=== PATIENT | male | born 1975 | race Caucasian/White ===

== ENCOUNTER 2023-05-12 11:38 | Outpatient (OUT) | payer OTHER, SELFPAY ==
[2023-05-12 12:14] LABS: Basophils Absolute Auto 0.1 10^3/uL (0.0-0.1); Basophils Percent Auto 0.7 % (0.2-2.0); Eosinophils Absolute Auto 0.2 10^3/uL (0.0-0.7); Eosinophils Percent Auto 1.8 % (0.9-7.0); Hematocrit 42.3 % (42.0-54.0); Hemoglobin 14.5 g/dL (14.0-18.0); Immature Granulocytes Abs Auto 0.04 10^3/uL (0.00-0.03); Immature Granulocytes Pct Auto 0.4 % (0.0-0.5); Lymphocytes Absolute Auto 2.8 10^3/uL (1.2-3.8); Lymphocytes Percent Auto 27.5 % (20.5-60.0); Mean Corpuscular HGB Conc 34.3 g/dL (29.9-35.2); Mean Corpuscular Hemoglobin 29.2 pg (25.9-34.0); Mean Corpuscular Volume 85.1 fL (80.0-94.0); Mean Platelet Volume 10.8 fL (9.5-13.5); Monocytes Absolute Auto 0.7 10^3/uL (0.3-0.8); Monocytes Percent Auto 6.5 % (1.7-12.0); Neutrophils Absolute Auto 6.5 10^3/uL (1.4-6.5); Neutrophils Percent Auto 63.1 % (43.0-75.0); Platelet Count 207 10^3/uL (150-450); Red Blood Count 4.97 10^6/uL (4.70-6.10); Red Cell Distribution Width 14.7 % (11.0-15.0); White Blood Count 10.3 10^3/uL (4.0-11.0)
[2023-05-12 15:02] LABS: Alanine Aminotransferase 24 U/L (16-63); Alkaline Phosphatase 76 U/L (46-116); Anion Gap 12.6; Aspartate Amino Transferase 12 U/L (15-37); Bilirubin Total 0.6 mg/dL (0.2-1.0); Calcium 8.8 mg/dL (8.5-10.1); Carbon Dioxide 28.6 mmol/L (21.0-32.0); Chloride 103 mmol/L (98-107); Estimated GFR (African America >60 (>=60); Estimated GFR (Non-African Ame >60 (>=60); Globulin 3.9 g/dL; Glucose 112 mg/dL (74-106); Potassium 4.2 mmol/L (3.5-5.1); Sodium 140 mmol/L (136-145); Total Protein 7.9 g/dL (6.4-8.2); Triglycerides 49 mg/dL (<=150)
[2023-05-12 15:03] LABS: Chol HDL Ratio 3.5; Cholesterol 175 mg/dL (<=200); HDL Cholesterol 50 mg/dL (40-60); LDL Cholesterol Calculated 115.2 mg/dL; VLDL CHOLESTEROL 9.8 mg/dL
== END 2023-05-12 11:39 | disposition home or self-care (01) ==
PROVIDERS: PCP Nurse Practitioner Family; Visit Provider Nurse Practitioner Family
DX: I10 Essential (primary) hypertension (principal); E11.9 Type 2 diabetes mellitus without complications
CPT/HCPCS: 36415; 80053; 80061; 85025

== ENCOUNTER 2023-12-10 08:39 | Outpatient (OUT) | payer OTHER, SELFPAY ==
[2023-12-10 10:45] LABS: Alanine Aminotransferase 19 U/L (16-63); Albumin Globulin Ratio 0.9; Albumin Level 3.6 g/dL (3.4-5.0); Alkaline Phosphatase 73 U/L (46-116); Anion Gap 15.3; Aspartate Amino Transferase 12 U/L (15-37); Bilirubin Total 0.6 mg/dL (0.2-1.0); Calcium 8.9 mg/dL (8.5-10.1); Carbon Dioxide 26.7 mmol/L (21.0-32.0); Chloride 107 mmol/L (98-107); Chol HDL Ratio 3.1; Cholesterol 179 mg/dL (<=200); Estimated GFR (African America >60 (>=60); Estimated GFR (Non-African Ame >60 (>=60); Glucose 97 mg/dL (74-106); HDL Cholesterol 58 mg/dL (40-60); Sodium 145 mmol/L (136-145); Total Protein 7.6 g/dL (6.4-8.2); Triglycerides 30 mg/dL (<=150)
== END 2023-12-10 08:40 | disposition home or self-care (01) ==
LOC: LAB 08:40
PROVIDERS: PCP Nurse Practitioner Family; Visit Provider Nurse Practitioner Family
DX: I10 Essential (primary) hypertension (principal)
CPT/HCPCS: 36415; 80053; 80061

== ENCOUNTER 2024-06-08 11:04 | Outpatient (OUT) | payer OTHER, SELFPAY ==
--- OUTSIDE RECORDS SUMMARY | 2024-06-07 11:03 | XMS_ITS | CCD ---
Author Organization [facility] Care Team Providers Care Travel Service Consultant Name Role Phone Stacy Byers Unavailable STACY BYERS Attending Unavailable STACY BYERS Admitting Unavailable STACY BYERS Consulting Unavailable STACY BYERS Admitting Unavailable STACY BYERS Primary Care Unavailable STACY BYERS Consulting Unavailable STACY BYERS Attending Unavailable Medications Current Medications Medication Drug Class(es) Dates Sig (Normalized) Sig (Original) lisinopril 20 mg oral tablet (4 sources) Angiotensin Converting Enzyme Inhibitor Start: 08-25-2022 take 1 tablet by mouth every twenty-four hours Lisinopril 20 MG 1 tablet Orally Once a day for 30 days Aug, Active Start: 08-25-2022 take 1 tablet by jolene th every twenty-four hours Lisinopril 10 MG 1 tablet Orally Once a day for 30 days Aug, Active Problems Problem Classification Problem Date Documented Da te Episodic/Chronic Diabetes mellitus without complication (7 sources) Type 2 diabetes mellitus without complication; Translations: [Type 2 diabetes mellitus without complications] Chronic Essential hypertension (12 sources) Essential hypertension; Translations: [Essential (primary) hypertension] Onset: 12-11-2022 Chronic Other aftercare (1 source) Encounter for follow-up examination after completed treatment for conditions other than malignant neoplasm Episodic Other circulatory disease (1 source) Elevated blood-pressure reading, without diagnosis of hypertension Episodic Results Test Name Value Interpretation Reference Range Facility GLYCOHEMOGLOBIN A1Con 2022 ADA RECOMMENDATION SEE BELOW Normal [facility] Comment on above: Result Comment: ADA RECOMMENDED LIMIT 4.0 - 6.0 ADA THERAPEUTIC TARGET < 7.0 ACTION SUGGESTED > 7.0 Performed By: #### A 1C #### [facility] [address] [address] [address] Cherie Daniel Glucose [Mass/Vol] 97 mg/dL Normal [facility] Comment on above: Performed By: #### A 1C #### [facility] [address] [address] [address] Cherie Daniel HbA1c (Bld) [Mass fraction] 5.0 % Normal 4.5-6.2 [facility] Comment on above: Performed By: #### A 1C #### [facility] [address] [address] [address] Cherie Daniel MICROALB CREAT RATIO RANDOMo n 12-11-2022 mALB 3.9 mg/L Normal <=30.0 [facility] Comment on above: Performed By: #### M CRR #### [facility] [address] [place] [address] Dr. Cherie Daniel MALB CR RATIO 28.5 mg/g Normal 0.0-29.9 [facility] Comment on above: Performed By: #### M CRR #### [facility] [address] [address] [address] Cherie Daniel MALB CR RATIO RANGE SEE BELOW Normal [facility] Comment on above: Result Comment: NO M ICROALBUMINURIA 0-29 MG/G CLINICAL MICROALBUMINURIA 30-300 MG/G MACROALBUMINURIA >300 MG/G Performed By: #### M CRR #### [facility] [address] [place] [address] Dr. Cherie Daniel URINE CREAT 136.80 mg/dL Normal 20.00-300.00 [facility] Comment on above: Performed By: #### M CRR #### [facility] [address] [place] [address] Dr. Cherie Daniel PROF 14(COMP METB)on 023 Albumin [Mass/Vol] 4.0 g/dL Normal 3.4-5.0 [facility] Comment on above: Performed By: #### C MP #### [facility] [address] [place] [address] Dr. Cherie Daniel Albumin/Globulin [Mass ratio] 1.0 {ratio} Normal [facility] Comment on above: Performed By: #### C MP #### [facility] [address] [address] [address] Cherie Daniel ALP [Catalytic activity/Vol] 94 U/L Normal 46-116 [facility] Comment on above: Performed By: #### C MP #### [facility] [address] [address] [address] Cherie Daniel ALT [Catalytic activity/Vol] 31 U/L Normal 16-63 [facility] Comment on above: Performed By: #### C MP #### [facility] [address] [address] [address] Cherie Daniel Anion gap [Moles/Vol] 10.9 mmol/L Normal [facility] Comment on above: Performed By: #### C MP #### [facility] [address] [place] [address] Dr. Cherie Daniel AST [Catalytic activity/Vol] 19 U/L Normal 15-37 [facility] Comment on above: Performed By: #### C MP #### [facility] [address] [place] [address] Dr. Cherie Daniel Bilirubin [Mass/Vol] 0.6 mg/dL Normal 0.2-1.0 [facility] Comment on above: Performed By: #### C MP #### [facility] [address] [place] [address] Dr. Cherie Daniel Calcium [Mass/Vol] 9.3 mg/dL Normal 8.5-10.1 [facility] Comment on above: Performed By: #### C MP #### [facility] [address] [place] [address] Dr. Cherie Daniel Chloride [Moles/Vol] 104 mmol/L Normal 98-107 [facility] Comment on above: Performed By: #### C MP #### [facility] [address] [place] [address] Dr. Cherie Daniel CO2 [Moles/Vol] 27.0 mmol/L Normal 21.0-32.0 [facility] Comment on above: Performed By: #### C MP #### [facility] [address] [address] [address] Cherie Daniel Creatinine [Mass/Vol] 0.95 mg/dL Normal 0.70-1.30 [facility] Comment on above: Performed By: #### C MP #### [facility] [address] [place] [address] Dr. Cherie Daniel EGFR-AF LUXEMBOURGER >60 Normal >=60 [facility] Comment on above: Performed By: #### C MP #### [facility] [address] [address] [address] Cherie Daniel EGFR-NON AF LUXEMBOURGER >60 Normal >=60 [facility] Comment on above: Performed By: #### C MP #### [facility] [address] [place] [address] Dr. Cherie Daniel Globulin (S) [Mass/Vol] 4.0 g/dL Normal [facility] Comment on above: Performed By: #### C MP #### [facility] [address] [place] [address] Dr. Cherie Daniel Glucose [Mass/Vol] 103 mg/dL Normal 74-106 [facility] Comment on above: Performed By: #### C MP #### [facility] [address] [place] [address] Dr. Cherie Daniel Potassium [Moles/Vol] 3.9 mmol/L Normal 3.5-5.1 [facility] Comment on above: Performed By: #### C MP #### [facility] [address] [place] [address] Dr. Cherie Daniel Protein [Mass/Vol] 8.0 g/dL Normal 6.4-8.2 [facility] Comment on above: Performed By: #### C MP #### [facility] [address] [place] [address] Dr. Cherie Daniel Sodium [Moles/Vol] 138 mmol/L Normal 136-145 [facility] Comment on above: Performed By: #### C MP #### [facility] [address] [place] [address] Dr. Cherie Daniel Urea nitrogen [Mass/Vol] 13.0 mg/dL Normal 7.0-18.0 [facility] Comment on above: Performed By: #### C MP #### [facility] [address] [place] [address] Dr. Cherie Daniel Urea nitrogen/Creatinine [Mass ratio] 13.7 mg/mg Normal [facility] Comment on above: Performed By: #### C MP #### [facility] [address] [place] [address] Dr. Cherie Daniel CBC AUTO DIFFon 08-05-2022 BASO # 0.1 103/ul Normal 0.0-0.1 [facility] Comment on above: Performed By: #### C BC #### [facility] [address] [place] [address] Dr. Cherie Daniel Basophils/100 WBC (Bld) 0.6 % Normal 0.2-2.0 [facility] Comment on above: Performed By: #### C BC #### [facility] [address] [place] [address] Dr. Cherie Daniel EO # 0.4 103/ul Normal 0.0-0.7 [facility] Comment on above: Performed By: #### C BC #### [facility] [address] [place] [address] Dr. Cherie Daniel Eosinophils/100 WBC (Bld) 2.9 % Normal 0.9-7.0 [facility] Comment on above: Performed By: #### C BC #### [facility] [address] [place] [address] Dr. Cherie Daniel Erythrocyte distribution width (RBC) [Ratio] 14.1 % Normal 11.0-15.0 [facility] Comment on above: Performed By: #### C BC #### [facility] [address] [place] [address] Dr. Cherie Daniel Hematocrit (Bld) [Volume fraction] 42.8 % Normal 42.0-54.0 [facility] Comment on above: Performed By: #### C BC #### [facility] [address] [place] [address] Dr. Cherie Daniel Hemoglobin (Bld) [Mass/Vol] 14.7 g/dL Normal 14.0-18.0 [facility] Comment on above: Performed By: #### C BC #### [facility] [address] [place] [address] Dr. Cherie Daniel IG # 0.05 10e3/ul Critically high 0.00-0.03 [facility] Comment on above: Performed By: #### C BC #### [facility] [address] [place] [address] Dr. Cherie Daniel IG % 0.4 % Normal 0.0-0.5 [facility] Comment on above: Performed By: #### C BC #### [facility] [address] [place] [address] Dr. Cherie Daniel LYMPH # 3.4 103/ul Normal 1.2-3.8 [facility] Comment on above: Performed By: #### C BC #### [facility] [address] [place] [address] Dr. Cherie Daniel Lymphocytes/100 WBC (Bld) 25.6 % Normal 20.5-60.0 [facility] Comment on above: Performed By: #### C BC #### [facility] [address] [place] [address] Dr. Cherie Daniel MANUAL DIFF REQ NO Normal [facility] Comment on above: Performed By: #### C BC #### [facility] [address] [place] [address] Dr. Cherie Daniel MCH (RBC) [Entitic mass] 29.1 pg Normal 25.9-34.0 [facility] Comment on above: Performed By: #### C BC #### [facility] [address] [place] [address] Dr. Cherie Daniel MCHC (RBC) [Mass/Vol] 34.3 g/dL Normal 29.9-35.2 [facility] Comment on above: Performed By: #### C BC #### [facility] [address] [place] [address] Dr. Cherie Daniel MCV (RBC) [Entitic vol] 84.8 fL Normal 80.0-94.0 [facility] Comment on above: Performed By: #### C BC #### [facility] [address] [address] [address] Cherie Daniel MONO # 0.8 103/ul Normal 0.3-0.8 [facility] Comment on above: Performed By: #### C BC #### [facility] [address] [address] [address] Cherie Daniel Monocytes/100 WBC (Bld) 5.7 % Normal 1.7-12.0 [facility] Comment on above: Performed By: #### C BC #### [facility] [address] [address] [address] Cherie Daniel NEUT # 8.5 103/ul Critically high 1.4-6.5 [facility] Comment on above: Performed By: #### C BC #### [facility] [address] [place] [address] Dr. Cherie Daniel Neutrophils/100 WBC (Bld) 64.8 % Normal 43.0-75.0 [facility] Comment on above: Performed By: #### C BC #### [facility] [address] [address] [address] Cherie Daniel Platelet mean volume (Bld) [Entitic vol] 10.4 fL Normal 9.5-13.5 [facility] Comment on above: Performed By: #### C BC #### [facility] [address] [place] [address] Dr. Cherie Daniel PLT 246 103/ul Normal 150-450 [facility] Comment on above: Performed By: #### C BC #### [facility] [address] [place] [address] Dr. Cherie Daniel RBC 5.05 106/ul Normal 4.70-6.10 [facility] Comment on above: Performed By: #### C BC #### [facility] [address] [address] [address] Cherie Daniel WBC 13.1 103/ul Critically high 4.0-11.0 [facility] Comment on above: Performed By: #### C BC #### [facility] [address] [address] [address] Cherie Daniel GLYCOHEMOGLOBIN A1Con 2021 ADA RECOMMENDATION SEE BELOW Normal [facility] Comment on above: Result Comment: ADA RECOMMENDED LIMIT 4.0 - 6.0 ADA THERAPEUTIC TARGET < 7.0 ACTION SUGGESTED > 7.0 Performed By: #### A 1C #### [facility] [address] [address] [address] Cherie Daniel Glucose [Mass/Vol] 166 mg/dL Normal [facility] Comment on above: Performed By: #### A 1C #### [facility] [address] [place] [address] Dr. Cherie Daniel HbA1c (Bld) [Mass fraction] 7.4 % Critically high 4.5-6.2 [facility] Comment on above: Performed By: #### A 1C #### [facility] [address] [place] [address] Dr. Cherie Daniel LIPID PROFILEon 08-05-2022 CHOL-HDL RATIO NORM SEE BELOW Normal [facility] Comment on above: Result Comment: 3.3 - 4.4 LOW RISK 4.4 - 7.1 AVERAGE RISK 7.1 - 11.0 MODERATE RISK >11.0 HIGH RISK Performed By: #### L IPID, CMP #### [facility] [address] [place] [address] Dr. Cherie Daniel Cholesterol [Mass/Vol] 179 mg/dL Normal <=200 [facility] Comment on above: Performed By: #### L IPID, CMP #### [facility] [address] [place] [address] Dr. Cherie Daniel Cholesterol in HDL [Mass/Vol] 45 mg/dL Normal 40-60 [facility] Comment on above: Performed By: #### L IPID, CMP #### [facility] [address] [place] [address] Dr. Cherie Daniel Cholesterol in LDL [Mass/Vol] 118.2 mg/dL Normal [facility] Comment on above: Performed By: #### L IPID, CMP #### [facility] [address] [address] [address] Cherie Daniel Cholesterol.total/Cho lesterol in HDL [Mass ratio] 4.0 {ratio} Normal [facility] Comment on above: Performed By: #### L IPID, CMP #### [facility] [address] [place] [address] Dr. Cherie Daniel HDL NORMAL > or = 60 mg/dl - LO W CARDIOVASCULAR RISK <40 mg/dl - HIGH CARDIOVASCULAR RISK Normal [facility] Comment on above: Performed By: #### L IPID, CMP #### [facility] [address] [address] [address] Cherie Daniel LDL CALC NORMAL SEE BELOW Normal [facility] Comment on above: Result Comment: <100 mg/dl OPTIMAL 100 - 129 mg/dl NEAR OR ABOVE OPTIMAL 130 - 159 mg/dl BORDERLINE HIGH 160 - 189 mg/dl HIGH >190 mg/dl VERY HIGH Performed By: #### L IPID, CMP #### [facility] [address] [place] [address] Dr. Cherie Daniel Triglyceride [Mass/Vol] 79 mg/dL Normal <=150 [facility] Comment on above: Performed By: #### L IPID, CMP #### [facility] [address] [place] [address] Dr. Cherie Daniel VLDL CALC 15.8 mg/dL Normal [facility] Comment on above: Performed By: #### L IPID, CMP #### [facility] [address] [place] [address] Dr. Cherie Daniel PROF 14(COMP METB)on 022 Albumin [Mass/Vol] 3.7 g/dL Normal 3.4-5.0 [facility] Comment on above: Performed By: #### L IPID, CMP #### [facility] [address] [place] [address] Dr. Cherie Daniel Albumin/Globulin [Mass ratio] 0.9 {ratio} Normal [facility] Comment on above: Performed By: #### L IPID, CMP #### [facility] [address] [place] [address] Dr. Cherie Daniel ALP [Catalytic activity/Vol] 99 U/L Normal 46-116 [facility] Comment on above: Performed By: #### L IPID, CMP #### [facility] [address] [address] [address] Cherie Daniel ALT [Catalytic activity/Vol] 33 U/L Normal 16-63 [facility] Comment on above: Performed By: #### L IPID, CMP #### [facility] [address] [address] [address] Cherie Daniel Anion gap [Moles/Vol] 11.2 mmol/L Normal [facility] Comment on above: Performed By: #### L IPID, CMP #### [facility] [address] [place] [address] Dr. Cherie Daniel AST [Catalytic activity/Vol] 19 U/L Normal 15-37 [facility] Comment on above: Performed By: #### L IPID, CMP #### [facility] [address] [address] [address] Cherie Daniel Bilirubin [Mass/Vol] 0.5 mg/dL Normal 0.2-1.0 [facility] Comment on above: Performed By: #### L IPID, CMP #### [facility] [address] [place] [address] Dr. Cherie Daniel Calcium [Mass/Vol] 8.8 mg/dL Normal 8.5-10.1 [facility] Comment on above: Performed By: #### L IPID, CMP #### [facility] [address] [address] [address] Cherie Daniel Chloride [Moles/Vol] 101 mmol/L Normal 98-107 [facility] Comment on above: Performed By: #### L IPID, CMP #### [facility] [address] [place] [address] Dr. Cherie Daniel CO2 [Moles/Vol] 29.8 mmol/L Normal 21.0-32.0 [facility] Comment on above: Performed By: #### L IPID, CMP #### [facility] [address] [place] [address] Dr. Cherie Daniel Creatinine [Mass/Vol] 0.91 mg/dL Normal 0.70-1.30 [facility] Comment on above: Performed By: #### L IPID, CMP #### [facility] [address] [place] [address] Dr. Cherie Daniel EGFR-AF LUXEMBOURGER >60 Normal >=60 [facility] Comment on above: Performed By: #### L IPID, CMP #### [facility] [address] [address] [address] Cherie Daniel EGFR-NON AF LUXEMBOURGER >60 Normal >=60 [facility] Comment on above: Performed By: #### L IPID, CMP #### [facility] [address] [place] [address] Dr. Cherie Daniel Globulin (S) [Mass/Vol] 4.0 g/dL Normal [facility] Comment on above: Performed By: #### L IPID, CMP #### [facility] [address] [place] [address] Dr. Cherie Daniel Glucose [Mass/Vol] 163 mg/dL Critically high 74-106 [facility] Comment on above: Performed By: #### L IPID, CMP #### [facility] [address] [place] [address] Dr. Cherie Daniel Potassium [Moles/Vol] 4.0 mmol/L Normal 3.5-5.1 [facility] Comment on above: Performed By: #### L IPID, CMP #### [facility] [address] [place] [address] Dr. Cherie Daniel Protein [Mass/Vol] 7.7 g/dL Normal 6.4-8.2 [facility] Comment on above: Performed By: #### L IPID, CMP #### [facility] [address] [place] [address] Dr. Cherie Daniel Sodium [Moles/Vol] 138 mmol/L Normal 136-145 [facility] Comment on above: Performed By: #### L IPID, CMP #### [facility] [address] [place] [address] Dr. Cherie Daniel Urea nitrogen [Mass/Vol] 10.0 mg/dL Normal 7.0-18.0 [facility] Comment on above: Performed By: #### L IPID, CMP #### [facility] [address] [address] [address] Cherie Daniel Urea nitrogen/Creatinine [Mass ratio] 11.0 mg/mg Normal [facility] Comment on above: Performed By: #### L IPID, CMP #### [facility] [address] [address] [address] Cherie Daniel VITAMIN D 25 OHon 08-05-2022 VIT D 25-OH 10.9 ng/mL Normal [facility] Comment on above: Performed By: #### V ITAD #### [facility] [address] [place] [address] Dr. Cherie Daniel VIT D RANGES SEE BELOW Normal [facility] Comment on above: Result Comment: <20 ng/mL Vit D deficient 20 - <30 ng/mL Vit D insufficient 30 - 100 ng/mL Vit D sufficient >100 ng/mL Potential Toxicity Performed By: #### V ITAD #### [facility] [address] [address] [address] Cherie Daniel Vital Signs Date Time Vital Sign Value Performing Clinician Facility 12-16-2022 10:00-0500 Body height 182.88 cm Stacy Byers Other [facility] Other 12-16-2022 10:00-0500 Body mass index (BMI) [Ratio] 39.6 kg/m2 Stacy Byers Other [facility] Other 12-16-2022 10:00-0500 Body temperature 98.1 [degF] Stacy Byers Other [facility] Other 12-16-2022 10:00-0500 Body weight 132.45 kg Stacy Byers Other [facility] Other 12-16-2022 10:00-0500 Diastolic blood pressure 85 mm[Hg] Stacy Byers Other [facility] Other 12-16-2022 10:00-0500 Respiratory rate 18 /min Stacy Byers Other [facility] Other 12-16-2022 10:00-0500 SaO2% (BldA) [Mass fraction] 97 % Stacy Byers Other [facility] Other 12-16-2022 10:00-0500 Systolic blood pressure 133 mm[Hg] Stacy Byers Other [facility] Other 10-14-2022 11:00-0500 Body height 182.88 cm Stacy Byers Other [facility] Other 10-14-2022 11:00-0500 Body mass index (BMI) [Ratio] 41.63 kg/m2 Stacy Byers Other [facility] Other 10-14-2022 11:00-0500 Body temperature 97.4 [degF] Stacy Byers Other [facility] Other 10-14-2022 11:00-0500 Body weight 139.26 kg Stacy Byers Other [facility] Other 10-14-2022 11:00-0500 Diastolic blood pressure 83 mm[Hg] Stacy Rodault Other [facility] Other 10-14-2022 11:00-0500 Respiratory rate 18 /min Stacy Rodault Other [facility] Other 10-14-2022 11:00-0500 SaO2% (BldA) [Mass fraction] 96 % Stacy Byers Other [facility] Other 10-14-2022 11:00-0500 Systolic blood pressure 140 mm[Hg] Stacy Byers Other [facility] Other 08-25-2022 11:00-0500 Body height 182.88 cm Stacy Byers Other [facility] Other 08-25-2022 11:00-0500 Body mass index (BMI) [Ratio] 44.21 kg/m2 Stacy Byers Other [facility] Other 08-25-2022 11:00-0500 Body temperature 97.3 [degF] Stacy Byers Other [facility] Other 08-25-2022 11:00-0500 Body weight 147.87 kg Stacy Byers Other [facility] Other 08-25-2022 11:00-0500 Diastolic blood pressure 101 mm[Hg] Stacy Rodault Other [facility] Other 08-25-2022 11:00-0500 Respiratory rate 18 /min Stacy Rodault Other [facility] Other 08-25-2022 11:00-0500 SaO2% (BldA) [Mass fraction] 97 % Satcy Rodault Other [facility] Other 08-25-2022 11:00-0500 Systolic blood pressure 171 mm[Hg] Stacy Byers Other [facility] Other 08-05-2022 11:30-0400 Body height 182.88 cm Stacy Byers Other [facility] Other 08-05-2022 11:30-0400 Body mass index (BMI) [Ratio] 44.34 kg/m2 Stacy Byers Other [facility] Other 08-05-2022 11:30-0400 Body temperature 97.3 [degF] Stacy Byers Other [facility] Other 08-05-2022 11:30-0400 Body weight 148.33 kg Stacy Byers Other [facility] Other 08-05-2022 11:30-0400 Diastolic blood pressure 110 mm[Hg] Stacy Byers Other [facility] Other 08-05-2022 11:30-0400 Respiratory rate 20 /min Stacy Byers Other [facility] Other 08-05-2022 11:30-0400 SaO2% (BldA) [Mass fraction] 96 % Stacy Byers Other [facility] Other 08-05-2022 11:30-0400 Systolic blood pressure 172 mm[Hg] Stacy Byers Other [facility] Other Encounters Encounter Date Encounter Type Care Provider Facility Start: 12-16-2022 End: 12-16-2022 ambulatory Stacy Rodault Other [facility] Other Start: 12-16-2022 Office outpatient vi sit 15 minutes Stacy Rodault [facility] Start: 12-11-2022 End: 12-12-2022 ambulatory STACY BYERS Facility:[facility] Start: 11-24-2022 End: 11-24-2022 ambulatory Stacy Byers Other [employer] Other Start: 11-24-2022 Telephone encounter Stacy dallas [facility] [place] Start: 10-14-2022 End: 10-14-2022 ambulatory Stacy Byers Other [employer] Other Start: 10-14-2022 Office outpatient vi sit 25 minutes Stacy Modesta [facility] [place] Start: 08-25-2022 End: 08-25-2022 ambulatory Stacy Byers Other [employer] Other Start: 08-25-2022 Office outpatient vi sit 25 minutes Stacy Modesta [facility] [place] Start: 08-11-2022 End: 08-11-2022 ambulatory Stacy Byers Other [employer] Other Start: 08-11-2022 Encounter by nydia r link Stacy Modesta [facility] [place] Start: 08-08-2022 Encounter for genera l adult medical examination without abnormal findings STACY MODESTA [facility] Start: 08-05-2022 End: 08-06-2022 Encounter for general adult medical examination without abnormal findings Stacy Modesta [facility] [place] Start: 08-05-2022 Initial preventive medicine new patient 40-64yrs Stacy Modesta [facility] [place] Start: 08-05-2022 End: 08-06-2022 ambulatory STACY MODESTA [employer] Other Payers Date Payer Category Payer Unknown [id number] 1975 Unknown [id number] 1957 Private Health Insurance [id number] Social History Date Type Detail Facility Sex Assigned At [employer] Other Evaluation note 12-16-2022 Note Date & Type Note Facility 12-16-2022 Evaluation note Encounter Date Diagnosis Assessment Notes Nov, Primary hypertension (ICD-10 - I10) Increased dose as we discussed and will follow up in new office in 6 months Nov, Type 2 diabetes mellitus without complication, without long-term current use of insulin (ICD-10 - E11.9) Continue to control with diet as it is working [employer] Other Evaluation note 11-24-2022 Note Date & Type Note Facility 11-24-2022 Evaluation note Encounter Date Diagnosis Assessment Notes Nov, Primary hypertension (ICD-10 - I10) [employer] Other Evaluation note 10-14-2022 Note Date & Type Note Facility 10-14-2022 Evaluation note Encounter Date Diagnosis Assessment Notes Sep, Primary hypertension (ICD-10 - I10) Continue current treatment plans. blood work will be check in 6 more weeks Sep, Type 2 diabetes mellitus without complication, without long-term current use of insulin (ICD-10 - E11.9) Continue current treatment plans. Currently had 19 pound weight loss. [employer] Other Evaluation note 08-25-2022 Note Date & Type Note Facility 08-25-2022 Evaluation note Encounter Date Diagnosis Assessment Notes Aug, Follow-up exam (ICD-10 - Z09) Discussed all test results in office today and what further steps are needed. Patient states understanding. Aug, Primary hypertension (ICD-10 - I10) Today we discussed lab results from previous visit. It is important for us to make sure we protect your kidneys since vision, kidneys and blood circulation are all effected by high blood pressure. It may take us a couple of visits to get your blood pressure in a healthy range and once we do we can space them out a lot more. In addition to medication prescribed we will also talk about healthy changes you can try. Also we will check other labs yearly to screen for other issues. Please remember we are a team and your opinion is very important in all of your healthcare decisions, About hypertension material was printed Aug, Type 2 diabetes mellitus without complication, without long-term current use of insulin (ICD-10 - E11.9) Today during the appointment we discussed all of the lab results from previous visit. Diabetes can cause issues with kidneys, vision, and circulation. We will be working together to find the treatment choices for you. At this time you have decided that you want to use diet changes to start with, which is a good option to start. We will follow up in a few weeks to see how you are doing. Also we will check other labs yearly to screen for other issues. Please remember we are a team and your opinion is very important in all of your healthcare decisions., Type 2 diabetes material was printed, Diabetes type 2 home care material was printed Face to Face with patient for 45 minutes to discuss lab results, education, treatment options including printouts for both hypertension and diabetes. Patient willing to start medication therapy hypertension and is making lifestyle changes for diabetes as start including carb counting, cutting out sugar drinks. Will recheck A1C in 8-12 weeks [employer] Other Evaluation note 08-05-2022 Note Date & Type Note Facility 08-05-2022 Evaluation note Encounter Date Diagnosis Assessment Notes Jul, Encounter for wellness examination in adult (ICD-10 - Z00.00) Today during your appointment we discussed your health history and family history of chronic health problems. We also discussed screenings that should be done to rule out chronic health problems. These screenings can help prevent many health problems from becoming major as early intervention is the best treatment for all conditions. We will be checking your cholesterol, kidney function, as well as blood sugar. Based on these findings, we will come up with a plan together of when the best time for your next screening should be. Jul, Elevated blood pressure reading (ICD-10 - R03.0) Patient is taking blood pressure at home weekly to see if he has white coat syndrome - will bring them to next appointment [employer] Other Evaluation note Note Date & Type Note Facility Evaluation note No Information [facility] [employer] Other History general Narrative - Reported Note Date & Type Note Facility History general Narrative - Reported Type Medical History diabetes Medical History hypertension [employer] Other Summary Purpose Family History No Family History Records Found Advance Directives No Advanced Directives Records Found Additional Source Comments REASON FOR VISIT (unrecogniz ed section and content) ESTABLISH, [place] Establish P [id number] LabsF/U labwork BP,, [place] Lab/Test Follow upFOLLOW UP HTN, [place] HypertensionNo InformationF/U, [place] diabetes (unrecognized sect ion and content) No Status Records Found INFORMATION SOURCE (unrecogn ized section and content) DATE CREATED AUTHOR 12/16/2022 [facility] FOR RECORDS PERTAINING TO PATIENTS WHO ARE OR HAVE BEEN ENROLLED IN A CHEMICAL DEPENDENCY/SUBSTANCEABUSE PROGRAM, SOME INFORMATION MAY BE OMITTED. This clinical summary was aggregated from multiple sources. Caution should be exercised in using it in the provision of clinical care. This summary normalizes information from multiple sources, and as a consequence, information in this document may materially change the coding, format and clinical context of patient data. In addition, data may be omitted in some cases. CLINICAL DECISIONS SHOULD BE BASED ON THE PRIMARY CLINICAL RECORDS. [employer] [facility]. provides no warranty or guarantee of the accuracy or completeness of information in this document.
--- OUTSIDE RECORDS SUMMARY | 2024-06-08 11:08 | XMS_ITS | CCD ---
Author Organization [facility] Care Team Providers Care Radiation Protection Specialist Name Role Phone Stacy Byers Unavailable STACY [...] 2022 ADA RECOMMENDATION SEE BELOW Normal [facility] Comment on above: Result Comment: ADA RECOMMENDED LIMIT 4.0 - 6.0 ADA THERAPEUTIC TARGET < 7.0 ACTION SUGGESTED > 7.0 Performed By: #### A 1C #### [facility] [address] [address] [address] Cherie Daniel Glucose [Mass/Vol] 97 mg/dL Normal [facility] Comment on above: Performed By: #### A 1C #### [facility] [address] [address] [address] Cherie Daniel HbA1c (Bld) [Mass fraction] 5.0 % Normal 4.5-6.2 [facility] Comment on above: Performed By: #### A 1C #### [facility] [address] [address] [address] Cherie Daniel MICROALB CREAT RATIO RANDOMo n 12-11-2022 mALB 3.9 mg/L Normal <=30.0 [facility] Comment on above: Performed By: #### M CRR #### [facility] [address] [place] [address] Dr. Cherie Daniel MALB CR RATIO 28.5 mg/g Normal 0.0-29.9 [facility] Comment on above: Performed By: #### M CRR #### [facility] [address] [address] [address] Cherie Daniel MALB CR RATIO RANGE SEE BELOW Normal [facility] Comment on above: Result Comment: NO M ICROALBUMINURIA 0-29 MG/G CLINICAL MICROALBUMINURIA 30-300 MG/G MACROALBUMINURIA >300 MG/G Performed By: #### M CRR #### [facility] [address] [place] [address] Dr. Cherie Daniel URINE CREAT 136.80 mg/dL Normal 20.00-300.00 [facility] Comment on above: Performed By: #### M CRR #### [facility] [address] [place] [address] Dr. Cherie Daniel PROF 14(COMP METB)on 023 Albumin [Mass/Vol] 4.0 g/dL Normal 3.4-5.0 [facility] Comment on above: Performed By: #### C MP #### [facility] [address] [place] [address] Dr. Cherie Daniel Albumin/Globulin [Mass ratio] 1.0 {ratio} Normal [facility] Comment on above: Performed By: #### C MP #### [facility] [address] [address] [address] Cherie Daniel ALP [Catalytic activity/Vol] 94 U/L Normal 46-116 [facility] Comment on above: Performed By: #### C MP #### [facility] [address] [address] [address] Cherie Daniel ALT [Catalytic activity/Vol] 31 U/L Normal 16-63 [facility] Comment on above: Performed By: #### C MP #### [facility] [address] [address] [address] Cherie Daniel Anion gap [Moles/Vol] 10.9 mmol/L Normal Th [facility] Comment on above: Performed By: #### C MP #### [facility] [address] [place] [address] Dr. Cherie Daniel AST [Catalytic activity/Vol] 19 U/L Normal 15-37 [facility] Comment on above: Performed By: #### C MP #### [facility] [address] [place] [address] Dr. Cherie Daniel Bilirubin [Mass/Vol] 0.6 mg/dL Normal 0.2-1.0 [facility] Comment on above: Performed By: #### C MP #### [facility] [address] [place] [address] Dr. Cherie Daniel Calcium [Mass/Vol] 9.3 mg/dL Normal 8.5-10.1 [facility] Comment on above: Performed By: #### C MP #### [facility] [address] [place] [address] Dr. Cherie Daniel Chloride [Moles/Vol] 104 mmol/L Normal 98-107 [facility] Comment on above: Performed By: #### C MP #### [facility] [address] [place] [address] Dr. Cherie Daniel CO2 [Moles/Vol] 27.0 mmol/L Normal 21.0-32.0 [facility] Comment on above: Performed By: #### C MP #### [facility] [address] [address] [address] Cherie Daniel Creatinine [Mass/Vol] 0.95 mg/dL Normal 0.70-1.30 [facility] Comment on above: Performed By: #### C MP #### [facility] [address] [place] [address] Dr. Cherie Daniel EGFR-AF [place]TH [place]OREAN >60 Normal >=60 [facility] Comment on above: Performed By: #### C MP #### [facility] [address] [address] [address] Cherie Daniel EGFR-NON AF [place]TH [place]OREAN >60 Normal >=60 [facility] Comment on above: Performed By: #### C MP #### [facility] [address] [place] [address] Dr. Cherie Daniel Globulin (S) [Mass/Vol] 4.0 g/dL Normal [facility] Comment on above: Performed By: #### C MP #### [facility] [address] [place] [address] Dr. Cherie Daniel Glucose [Mass/Vol] 103 mg/dL Normal 74-106 [facility] Comment on above: Performed By: #### C MP #### [facility] [address] [place] [address] Dr. Cherie Daniel Potassium [Moles/Vol] 3.9 mmol/L Normal 3.5-5.1 [facility] Comment on above: Performed By: #### C MP #### [facility] [address] [place] [address] Dr. Cherie Daniel Protein [Mass/Vol] 8.0 g/dL Normal 6.4-8.2 [facility] Comment on above: Performed By: #### C MP #### [facility] [address] [place] [address] Dr. Cherie Daniel Sodium [Moles/Vol] 138 mmol/L Normal 136-145 [facility] Comment on above: Performed By: #### C MP #### [facility] [address] [place] [address] Dr. Cherie Daniel Urea nitrogen [Mass/Vol] 13.0 mg/dL Normal 7.0-18.0 [facility] Comment on above: Performed By: #### C MP #### [facility] [address] [place] [address] Dr. Cherie Daniel Urea nitrogen/Creatinine [Mass ratio] 13.7 mg/mg Normal [facility] Comment on above: Performed By: #### C MP #### [facility] [address] [place] [address] Dr. Cherie Daniel CBC AUTO DIFFon 08-05-2022 BASO # 0.1 103/ul Normal 0.0-0.1 [facility] Comment on above: Performed By: #### C BC #### [facility] [address] [place] [address] Dr. Cherie Daniel Basophils/100 WBC (Bld) 0.6 % Normal 0.2-2.0 [facility] Comment on above: Performed By: #### C BC #### [facility] [address] [place] [address] Dr. Cherie Daniel EO # 0.4 103/ul Normal 0.0-0.7 [facility] Comment on above: Performed By: #### C BC #### [facility] [address] [place] [address] Dr. Cherie Daniel Eosinophils/100 WBC (Bld) 2.9 % Normal 0.9-7.0 [facility] Comment on above: Performed By: #### C BC #### [facility] [address] [place] [address] Dr. Chreie Daniel Erythrocyte distribution width (RBC) [Ratio] 14.1 % Normal 11.0-15.0 [facility] Comment on above: Performed By: #### C BC #### [facility] [address] [place] [address] Dr. Cherie Daniel Hematocrit (Bld) [Volume fraction] 42.8 % Normal 42.0-54.0 [facility] Comment on above: Performed By: #### C BC #### [facility] [address] [place] [address] Dr. Cherie Daniel Hemoglobin (Bld) [Mass/Vol] 14.7 g/dL Normal 14.0-18.0 [facility] Comment on above: Performed By: #### C BC #### [facility] [address] [place] [address] Dr. Cherie Daniel IG # 0.05 10e3/ul Critically high 0.00-0.03 [facility] Comment on above: Performed By: #### C BC #### [facility] [address] [place] [address] Dr. Cherie Daniel IG % 0.4 % Normal 0.0-0.5 [facility] Comment on above: Performed By: #### C BC #### [facility] [address] [place] [address] Dr. Cherie Daniel LYMPH # 3.4 103/ul Normal 1.2-3.8 [facility] Comment on above: Performed By: #### C BC #### [facility] [address] [place] [address] Dr. Cherie Daniel Lymphocytes/100 WBC (Bld) 25.6 % Normal 20.5-60.0 [facility] Comment on above: Performed By: #### C BC #### [facility] [address] [place] [address] Dr. Cherie Daniel MANUAL DIFF REQ NO Normal [facility] Comment on above: Performed By: #### C BC #### [facility] [address] [place] [address] Dr. Cherie Daniel MCH (RBC) [Entitic mass] 29.1 pg Normal 25.9-34.0 [facility] Comment on above: Performed By: #### C BC #### [facility] [address] [place] [address] Dr. Cherie Daniel MCHC (RBC) [Mass/Vol] 34.3 g/dL Normal 29.9-35.2 [facility] Comment on above: Performed By: #### C BC #### [facility] [address] [place] [address] Dr. Cherie Daniel MCV (RBC) [Entitic vol] 84.8 fL Normal 80.0-94.0 [facility] Comment on above: Performed By: #### C BC #### [facility] [address] [address] [address] Cherie Daniel MONO # 0.8 103/ul Normal 0.3-0.8 [facility] Comment on above: Performed By: #### C BC #### [facility] [address] [address] [address] Cherie Daniel Monocytes/100 WBC (Bld) 5.7 % Normal 1.7-12.0 [facility] Comment on above: Performed By: #### C BC #### [facility] [address] [address] [address] Cherie Daniel NEUT # 8.5 103/ul Critically high 1.4-6.5 [facility] Comment on above: Performed By: #### C BC #### [facility] [address] [place] [address] Dr. Cherie Daniel Neutrophils/100 WBC (Bld) 64.8 % Normal 43.0-75.0 [facility] Comment on above: Performed By: #### C BC #### [facility] [address] [address] [address] Cherie Daniel Platelet mean volume (Bld) [Entitic vol] 10.4 fL Normal 9.5-13.5 [facility] Comment on above: Performed By: #### C BC #### [facility] [address] [place] [address] Dr. Cherie Daniel PLT 246 103/ul Normal 150-450 [facility] Comment on above: Performed By: #### C BC #### [facility] [address] [place] [address] Dr. Cherie Daniel RBC 5.05 106/ul Normal 4.70-6.10 [facility] Comment on above: Performed By: #### C BC #### [facility] [address] [address] [address] Cherie Daniel WBC 13.1 103/ul Critically high 4.0-11.0 [facility] Comment on above: Performed By: #### C BC #### [facility] [address] [address] [address] Cherie Daniel GLYCOHEMOGLOBIN A1Con 2021 ADA RECOMMENDATION SEE BELOW Normal [facility] Comment on above: Result Comment: ADA RECOMMENDED LIMIT 4.0 - 6.0 ADA THERAPEUTIC TARGET < 7.0 ACTION SUGGESTED > 7.0 Performed By: #### A 1C #### [facility] [address] [address] [address] Cherie Daniel Glucose [Mass/Vol] 166 mg/dL Normal [facility] Comment on above: Performed By: #### A 1C #### [facility] [address] [place] [address] Dr. Cherie Daniel HbA1c (Bld) [Mass fraction] 7.4 % Critically high 4.5-6.2 [facility] Comment on above: Performed By: #### A 1C #### [facility] [address] [place] [address] Dr. Cherie Daniel LIPID PROFILEon 08-05-2022 CHOL-HDL RATIO NORM SEE BELOW Normal [facility] Comment on above: Result Comment: 3.3 - 4.4 LOW RISK 4.4 - 7.1 AVERAGE RISK 7.1 - 11.0 MODERATE RISK >11.0 HIGH RISK Performed By: #### L IPID, CMP #### [facility] [address] [place] [address] Dr. Cherie Daniel Cholesterol [Mass/Vol] 179 mg/dL Normal <=200 [facility] Comment on above: Performed By: #### L IPID, CMP #### [facility] [address] [place] [address] Dr. Cherie Daniel Cholesterol in HDL [Mass/Vol] 45 mg/dL Normal 40-60 [facility] Comment on above: Performed By: #### L IPID, CMP #### [facility] [address] [place] [address] Dr. Cherie Daniel Cholesterol in LDL [Mass/Vol] 118.2 mg/dL Normal [facility] Comment on above: Performed By: #### L IPID, CMP #### [facility] [address] [address] [address] Cherie Daniel Cholesterol.total/Cho lesterol in HDL [Mass ratio] 4.0 {ratio} Normal [facility] Comment on above: Performed By: #### L IPID, CMP #### [facility] [address] [place] [address] Dr. Cherie Daniel HDL NORMAL > or = 60 mg/dl - LO W CARDIOVASCULAR RISK <40 mg/dl - HIGH CARDIOVASCULAR RISK Normal [facility] Comment on above: Performed By: #### L IPID, CMP #### [facility] [address] [address] [address] Cherie Daniel LDL CALC NORMAL SEE BELOW Normal [facility] Comment on above: Result Comment: <100 mg/dl OPTIMAL 100 - 129 mg/dl NEAR OR ABOVE OPTIMAL 130 - 159 mg/dl BORDERLINE HIGH 160 - 189 mg/dl HIGH >190 mg/dl VERY HIGH Performed By: #### L IPID, CMP #### [facility] [address] [place] [address] Dr. Cherie Daniel Triglyceride [Mass/Vol] 79 mg/dL Normal <=150 [facility] Comment on above: Performed By: #### L IPID, CMP #### [facility] [address] [place] [address] Dr. Cherie Daniel VLDL CALC 15.8 mg/dL Normal [facility] Comment on above: Performed By: #### L IPID, CMP #### [facility] [address] [place] [address] Dr. Cherie Daniel PROF 14(COMP METB)on 022 Albumin [Mass/Vol] 3.7 g/dL Normal 3.4-5.0 [facility] Comment on above: Performed By: #### L IPID, CMP #### [facility] [address] [place] [address] Dr. Cherie Daniel Albumin/Globulin [Mass ratio] 0.9 {ratio} Normal [facility] Comment on above: Performed By: #### L IPID, CMP #### [facility] [address] [place] [address] Dr. Cherie Daniel ALP [Catalytic activity/Vol] 99 U/L Normal 46-116 [facility] Comment on above: Performed By: #### L IPID, CMP #### [facility] [address] [address] [address] Cherie Daniel ALT [Catalytic activity/Vol] 33 U/L Normal 16-63 [facility] Comment on above: Performed By: #### L IPID, CMP #### [facility] [address] [address] [address] Cherie Daniel Anion gap [Moles/Vol] 11.2 mmol/L Normal [facility] Comment on above: Performed By: #### L IPID, CMP #### [facility] [address] [place] [address] Dr. Cherie Daniel AST [Catalytic activity/Vol] 19 U/L Normal 15-37 [facility] Comment on above: Performed By: #### L IPID, CMP #### [facility] [address] [address] [address] Cherie Daniel Bilirubin [Mass/Vol] 0.5 mg/dL Normal 0.2-1.0 [facility] Comment on above: Performed By: #### L IPID, CMP #### [facility] [address] [place] [address] Dr. Cherie Daniel Calcium [Mass/Vol] 8.8 mg/dL Normal 8.5-10.1 [facility] Comment on above: Performed By: #### L IPID, CMP #### [facility] [address] [address] [address] Cherie Daniel Chloride [Moles/Vol] 101 mmol/L Normal 98-107 [facility] Comment on above: Performed By: #### L IPID, CMP #### [facility] [address] [place] [address] Dr. hCerie Daniel CO2 [Moles/Vol] 29.8 mmol/L Normal 21.0-32.0 [facility] Comment on above: Performed By: #### L IPID, CMP #### [facility] [address] [place] [address] Dr. Cherie Daniel Creatinine [Mass/Vol] 0.91 mg/dL Normal 0.70-1.30 [facility] Comment on above: Performed By: #### L IPID, CMP #### [facility] [address] [place] [address] Dr. Cherie Daniel EGFR-AF [place] >60 Normal >=60 [facility] Comment on above: Performed By: #### L IPID, CMP #### [facility] [address] [address] [address] Cherie Daniel EGFR-NON AF [place]ORE[place] >60 Normal >=60 [facility] Comment on above: Performed By: #### L IPID, CMP #### [facility] [address] [place] [address] Dr. Cherie Daniel Globulin (S) [Mass/Vol] 4.0 g/dL Normal [facility] Comment on above: Performed By: #### L IPID, CMP #### [facility] [address] [place] [address] Dr. Cherie Daniel Glucose [Mass/Vol] 163 mg/dL Critically high 74-106 [facility] Comment on above: Performed By: #### L IPID, CMP #### [facility] [address] [place] [address] Dr. Cherie Daniel Potassium [Moles/Vol] 4.0 mmol/L Normal 3.5-5.1 [facility] Comment on above: Performed By: #### L IPID, CMP #### [facility] [address] [place] [address] Dr. Cherie Daniel Protein [Mass/Vol] 7.7 g/dL Normal 6.4-8.2 [facility] Comment on above: Performed By: #### L IPID, CMP #### [facility] [address] [place] [address] Dr. Cherie Daniel Sodium [Moles/Vol] 138 mmol/L Normal 136-145 [facility] Comment on above: Performed By: #### L IPID, CMP #### [facility] [address] [place] [address] Dr. Cherie Daniel Urea nitrogen [Mass/Vol] 10.0 mg/dL Normal 7.0-18.0 [facility] Comment on above: Performed By: #### L IPID, CMP #### [facility] [address] [address] [address] Cherie Daniel Urea nitrogen/Creatinine [Mass ratio] 11.0 mg/mg Normal [facility] Comment on above: Performed By: #### L IPID, CMP #### [facility] [address] [address] [address] Cherie Daniel VITAMIN D 25 OHon 08-05-2022 VIT D 25-OH 10.9 ng/mL Normal [facility] Comment on above: Performed By: #### V ITAD #### [facility] [address] [place] [address] Dr. Cherie Daniel VIT D RANGES SEE BELOW Normal [facility] Comment on above: Result Comment: <20 ng/mL Vit D deficient 20 - <30 ng/mL Vit D insufficient 30 - 100 ng/mL Vit D sufficient >100 ng/mL Potential Toxicity Performed By: #### V ITAD #### [facility] [address] [address] [address] Cherie Daniel Vital Signs Date Time Vital Sign Value Performing Clinician Facility 12-16-2022 10:00-0500 Body height 182.88 cm Stacy Byers Other [facility] 12-16-2022 10:00-0500 Body mass index (BMI) [Ratio] 39.6 kg/m2 Stacy Byers Other [facility] 12-16-2022 10:00-0500 Body temperature 98.1 [degF] Stacy Byers Other [facility] 12-16-2022 10:00-0500 Body weight 132.45 kg Stacy Byers Other [facility] 12-16-2022 10:00-0500 Diastolic blood pressure 85 mm[Hg] Stacy Byers Other [facility] 12-16-2022 10:00-0500 Respiratory rate 18 /min Stacy Byers Other [facility] 12-16-2022 10:00-0500 SaO2% (BldA) [Mass fraction] 97 % Stacy Byers Other [facility] 12-16-2022 10:00-0500 Systolic blood pressure 133 mm[Hg] Stacy Byers Other [facility] 10-14-2022 11:00-0500 Body height 182.88 cm Stacy Byers Other [facility] 10-14-2022 11:00-0500 Body mass index (BMI) [Ratio] 41.63 kg/m2 Stacy Byers Other [facility] 10-14-2022 11:00-0500 Body temperature 97.4 [degF] Stacy Byers Other [facility] 10-14-2022 11:00-0500 Body weight 139.26 kg Stacy Byers Other [facility] 10-14-2022 11:00-0500 Diastolic blood pressure 83 mm[Hg] Stacy Rodault Other [facility] 10-14-2022 11:00-0500 Respiratory rate 18 /min Stacy Rodault Other [facility] 10-14-2022 11:00-0500 SaO2% (BldA) [Mass fraction] 96 % Stacy Byers Other [facility] 10-14-2022 11:00-0500 Systolic blood pressure 140 mm[Hg] Stacy Byers Other [facility] 08-25-2022 11:00-0500 Body height 182.88 cm Stacy Byers Other [facility] 08-25-2022 11:00-0500 Body mass index (BMI) [Ratio] 44.21 kg/m2 Stacy Byers Other [facility] 08-25-2022 11:00-0500 Body temperature 97.3 [degF] Stacy Byers Other [facility] 08-25-2022 11:00-0500 Body weight 147.87 kg Stacy Byers Other [facility] Other 08-25-2022 11:00-0500 Diastolic blood pressure 101 mm[Hg] Stacy Rodault Other [facility] Other 08-25-2022 11:00-0500 Respiratory rate 18 /min Stacy Rodault Other [facility] Other 08-25-2022 11:00-0500 SaO2% (BldA) [Mass fraction] 97 % Stacy Rodault Other [facility] Other 08-25-2022 11:00-0500 Systolic blood pressure 171 mm[Hg] Stacy Byers Other [facility] Other 08-05-2022 11:30-0400 Body height 182.88 cm Stacy Byers Other [facility] Other 08-05-2022 11:30-0400 Body mass index (BMI) [Ratio] 44.34 kg/m2 Stacy Byers Other [facility] Other 08-05-2022 11:30-0400 Body temperature 97.3 [degF] Stacy Byers Other [facility] Other 08-05-2022 11:30-0400 Body weight 148.33 kg Stacy Byers Other [facility] Other 08-05-2022 11:30-0400 Diastolic blood pressure 110 mm[Hg] Stacy Byers Other [facility] Other 08-05-2022 11:30-0400 Respiratory rate 20 /min Stacy Byers Other [facility] Other 08-05-2022 11:30-0400 SaO2% (BldA) [Mass fraction] 96 % Stacy Byers Other [facility] Other 08-05-2022 11:30-0400 Systolic blood pressure 172 mm[Hg] Stacy Byers Other [facility] Other Encounters Encounter Date Encounter Type Care Provider Facility Start: 12-16-2022 End: 12-16-2022 ambulatory Stacy Rodault Other [facility] Start: 12-16-2022 Office outpatient vi sit 15 minutes Stacy Rodault [facility] Start: 12-11-2022 End: 12-12-2022 ambulatory STACY BYERS Facility:[facility] Start: 11-24-2022 End: 11-24-2022 ambulatory Stacy Byers Other [facility] Start: 11-24-2022 Telephone encounter Stacy dallas [facility] Start: 10-14-2022 End: 10-14-2022 ambulatory Stacy Byers Other [facility] Start: 10-14-2022 Office outpatient vi sit 25 minutes Stacy Modesta [facility] Start: 08-25-2022 End: 08-25-2022 ambulatory Stacy Byers Other [facility] Start: 08-25-2022 Office outpatient vi sit 25 minutes Stacy Modesta [facility] Start: 08-11-2022 End: 08-11-2022 ambulatory Stacy Byers Other [facility] Start: 08-11-2022 Encounter by nydia r link Stacy Modesta [facility] Start: 08-08-2022 Encounter for genera l adult medical examination without abnormal findings STACY MODESTA [facility] Start: 08-05-2022 End: 08-06-2022 Encounter for general adult medical examination without abnormal findings Stacy Modesta [facility] Start: 08-05-2022 Initial preventive medicine new patient 40-64yrs Stacy Modesta [facility] Start: 08-05-2022 End: 08-06-2022 ambulatory STACY MODESTA [facility] Other Payers Date Payer Category Payer Unknown [id number] 1975 Unknown [id number] 1957 Private Health Insurance [id number] Social History Date Type Detail Facility Sex Assigned At [facility] Other Evaluation note 12-16-2022 Note Date & [...] control with diet as it is working [facility] Other Evaluation note 11-24-2022 Note Date & Type Note Facility 11-24-2022 Evaluation note Encounter Date Diagnosis Assessment Notes Nov, Primary hypertension (ICD-10 - I10) [facility] Other Evaluation note 10-14-2022 Note Date & Type Note Facility 10-14-2022 Evaluation note Encounter Date Diagnosis Assessment Notes Sep, Primary hypertension (ICD-10 - I10) Continue current treatment plans. blood work will be check in 6 more weeks Sep, Type 2 diabetes mellitus without complication, without long-term current use of insulin (ICD-10 - E11.9) Continue current treatment plans. Currently had 19 pound weight loss. [facility] Other Evaluation note 08-25-2022 Note Date & [...] drinks. Will recheck A1C in 8-12 weeks [facility] Other Evaluation note 08-05-2022 Note Date & [...] - will bring them to next appointment [facility] Other Evaluation note Note Date & Type Note Facility Evaluation note No Information [facility] [place] Other History general Narrative - Reported Note Date & Type Note Facility History general Narrative - Reported Type Medical History diabetes Medical History hypertension [facility] Other Summary Purpose Family History No Family History Records Found Advance Directives No Advanced Directives Records Found Additional Source Comments REASON FOR VISIT (unrecogniz ed section and content) ESTABLISH, [place] Establish P [id number] LabsF/U labwork BP,, [place] Lab/Test Follow upFOLLOW UP HTN, [place] HypertensionNo InformationF/U, [place]o diabetes (unrecognized sect ion and content) No Status Records Found INFORMATION SOURCE (unrecogn ized section and content) DATE CREATED AUTHOR 12/16/2022 [facility] FOR RECORDS PERTAINING TO PATIENTS WHO [...] BE BASED ON THE PRIMARY CLINICAL RECORDS. [facility]. provides no warranty or guarantee of the accuracy or completeness of information in this document.
[2024-06-08 11:22] LABS: Basophils Absolute Auto 0.1 10^3/uL (0.0-0.1); Eosinophils Absolute Auto 0.3 10^3/uL (0.0-0.7); Eosinophils Percent Auto 2.8 % (0.9-7.0); Hematocrit 43.9 % (42.0-54.0); Hemoglobin 15.2 g/dL (14.0-18.0); Immature Granulocytes Abs Auto 0.05 10^3/uL (0.00-0.03); Immature Granulocytes Pct Auto 0.5 % (0.0-0.5); Lymphocytes Absolute Auto 2.7 10^3/uL (1.2-3.8); Lymphocytes Percent Auto 24.8 % (20.5-60.0); Mean Corpuscular HGB Conc 34.6 g/dL (29.9-35.2); Mean Corpuscular Hemoglobin 29.6 pg (25.9-34.0); Mean Corpuscular Volume 85.4 fL (80.0-94.0); Mean Platelet Volume 10.2 fL (9.5-13.5); Monocytes Absolute Auto 0.8 10^3/uL (0.3-0.8); Monocytes Percent Auto 7.5 % (1.7-12.0); Neutrophils Absolute Auto 6.8 10^3/uL (1.4-6.5); Neutrophils Percent Auto 63.4 % (43.0-75.0); Platelet Count 214 10^3/uL (150-450); Red Blood Count 5.14 10^6/uL (4.70-6.10); Red Cell Distribution Width 13.7 % (11.0-15.0); White Blood Count 10.8 10^3/uL (4.0-11.0)
[2024-06-08 11:38] LABS: Alanine Aminotransferase 32 U/L (16-63); Albumin Globulin Ratio 1.1; Albumin Level 3.7 g/dL (3.4-5.0); Alkaline Phosphatase 87 U/L (46-116); Anion Gap 10.8; Aspartate Amino Transferase 13 U/L (15-37); BUN Creatinine Ratio 14.4; Bilirubin Total 0.7 mg/dL (0.2-1.0); Calcium 8.9 mg/dL (8.5-10.1); Carbon Dioxide 29.1 mmol/L (21.0-32.0); Chloride 103 mmol/L (98-107); Chol HDL Ratio 3.6; Cholesterol 183 mg/dL (<=200); Estimated GFR (African America >60 (>=60); Estimated GFR (Non-African Ame >60 (>=60); Globulin 3.5 g/dL; Glucose 118 mg/dL (74-106); HDL Cholesterol 51 mg/dL (40-60); LDL Cholesterol Calculated 121.6 mg/dL; Potassium 3.9 mmol/L (3.5-5.1); Sodium 139 mmol/L (136-145); Total Protein 7.2 g/dL (6.4-8.2); Triglycerides 52 mg/dL (<=150); VLDL CHOLESTEROL 10.4 mg/dL
== END 2024-06-08 11:05 | disposition home or self-care (01) ==
LOC: LAB 11:04
PROVIDERS: PCP Nurse Practitioner Family; Visit Provider Nurse Practitioner Family
DX: Z00.00 Encounter for general adult medical examination without abnormal findings (principal); I10 Essential (primary) hypertension; E11.9 Type 2 diabetes mellitus without complications
CPT/HCPCS: 36415; 80053; 80061; 82607; 85025

== ENCOUNTER 2025-09-11 11:51 | Outpatient (OUT) | payer OTHER, SELFPAY ==
--- OUTSIDE RECORDS SUMMARY | 2025-09-11 10:15 | XMS_ITS | Encounter Summary ---
Author Organization [facility] Address [address] [place] [address] Care Team Providers Care Software Product Specialist Name Role Phone Mary Segundo METAL DIE FINISHER Unavailable [phone] Reason for Visit * ReasonCommentsFoot PainChristopher Mary 50yo New Patient presents with his for left foot pain, started 2 weeks ago, NKI, intermittent. concerned BL feet swollen and red. Relates a history of gout,patient started Colchicine, states gait has changed since February due to foot and knee pain. Xrays with [employer] 05/2025.Patient uses walking cane as needed. [facility] ([place]06/2025 BS does not check A1C 6.0 SS 12W Encounter Details DateTypeDepartmentCare Team (Latest Contact Info)Rqwoexhxgfr78/24/2025 10:15 AM ESTOffice Visit [facility] [address] [place] [id number] Sathish Fuchs DPM [address] [place], [place] [id number] Autoimmune disease (HCC) (Primary Dx); Primary osteoarthritis of left ankle; Diabetic polyneuropathy associated with type 2 diabetes mellitus (HCC); Difficulty walking; Left foot pain Social History Tobacco UseTypesPacks/DayYears UsedDateSmoking Tobacco: NeverSmokeless Tobacco: Never Tobacco Cessation:Counseling Given: Not Answered Sex and Gender InformationValueDate RecordedSex Assigned at BirthNot on file Legal FfgNfcr2712/31/2022 8:05 PM EDTGender IdentityNot on fileSexual Orientation Not on filedocumented as of this encounter Progress Notes * Sathish Fuchs DPM - 09/11/2025 10:15 AM EST Images from the original note were not included. Subjective Patient ID: Sven Hernandez is a 50 y.o. male who presents for Foot Pain (Sven Hernandez 50yo New Patient presents with his for left foot pain, started 2 weeks ago, NKI, intermittent. concerned BL feet swollen and red. Relates a history of gout,patient started Colchicine, states gait has changed since February due to foot and knee pain. Xrays with [employer] 05/2025.Patient uses walking cane as needed. [facility]06/2025 BS does not check A1C 6.0 SS 12W). HPI This is a new patient who presents to clinic with his . Primarily today he is concerned about left foot pain. He has a about a year long history of migrating, arthralgias and myalgias that seem to come and go. He states initially shoe gear changes alleviated the pain in his feet. More recently he was having pain and had lab work which showed hyperuricemia and he was told that he had gout. He takes colchicine him periodically when he feels like he is getting acute pain which helps minimally.He does note a lot of swelling in bilateral lower extremities. He states that when his pain occurs he typically notices more swelling as well. He feels like his mobility has decreased over the last year. He has to use a walking stick for ambulation. He currently can not wear closed toed shoes because of the swelling bilaterally. He denies any breathing issues. He states he sleeps okay. He is diabetic but does not check his blood sugars. His states that his most recent hemoglobin A1c was around 6.2 percent. Review of Systems Constitutional: Positive for activity change. Negative for appetite change. Respiratory: Negative for chest tightness and shortness of breath. Cardiovascular: Positive for leg swelling. Negative for chest pain. Musculoskeletal: Positive for arthralgias and gait problem. Skin: Negative for color change and wound. Neurological: Positive for weakness and numbness. Psychiatric/Behavioral: Negative for agitation and behavioral problems. Hematological: Does not bruise/bleed easily. Endocrine: Negative for cold intolerance and heat intolerance. Allergic/Immunologic: Negative for immunocompromised state. Past medical History Medical History[1] Medications Current Medications[2] Allergies Patient has no known allergies. Past Surgical History Surgical History[3] Family History Family History[4] Objective Physical Exam Constitutional: Appearance: He is obese. Comments: Presents to clinic ambulating with walking stick assistance. Utilizing sandals. Accompanied by his . HENT: Head: Normocephalic and atraumatic. Cardiovascular: Pulses: Normal pulses. Comments: Plus two pitting edema left lower extremity, +1 pitting edema right lower extremity. Multiple telangiectasias and varicosities bilaterally. Hair growth absent. Skin temperature warm to cool. Pulmonary: Effort: Pulmonary effort is normal. No respiratory distress. Abdominal: Palpations: There is no mass. Musculoskeletal: Cervical back: No rigidity. Comments: Weightbearing examination reveals slight pes planus morphology. Able to perform a double heel rise test without good balance. Left foot: Isolated and maximal tenderness at the 5th metatarsal base. Mild tenderness over the 2ndand 3rd tarsometatarsal joints. Negative grind test in this area. Mild tenderness along the anterolateral ankle and sinus tarsi. Muscle strength 4/5 for all quadrants with some tenderness on resistedeversion. Ankle dorsiflexion-5 degrees with the knee extended, flexed. No appreciable subtalar joint range of motion noted. Skin: Capillary Refill: Capillary refill takes less than 2 seconds. Findings: No lesion or rash. Neurological: Mental Status: He is alert. Comments: Loss of protective sensation bilateral forefoot. Psychiatric: Mood and Affect: Mood normal. Behavior: Behavior normal. XR foot 3+ views left Imaging Result: AP, medial oblique, lateral views are weight-bearing. Slightly decreased calcaneal inclination. Large enthesophyte at the insertion of the Achilles tendon and plantar fascia. Degenerative changes of the talonavicular, naviculocuneiform and midfoot joints most notably the 2nd and 3rd tarsometatarsaljoint. There is a large os peroneum over the calcaneal cuboid joint. Joint space narrowing and degenerative changes of the 1st MTP with subchondral sclerosis, mild periarticular osteophytes, subchondral cystic changes. No fractures or dislocations noted. Increased soft tissue density and volume about the forefoot. Assessment/Plan ICD-10-CM 1. Autoimmune disease (HCC) M35.9 XR foot 3+ views left LESLEY SCR, IFA W/REFL TITER/PATTERN/MPX AB CASCADE CBC and differential C-reactive protein HLA-B27 antigen Rheumatoid factor Sedimentation rate, automated Uric acid Uric acid 2. Primary osteoarthritis of left ankle M19.072 XR foot 3+ views left 3. Diabetic polyneuropathy associated with type 2 diabetes mellitus (HCC) E11.42 4. Difficulty walking R26.2 5. Left foot pain M79.672 XR foot 3+ views left Patient was examined and evaluated. 3 views of the affected foot were taken in office today and I discussed my findings. There are degenerative changes across the midfoot joints however he has this history of migrating, chronic arthralgias and myalgias along bilateral upper and lower extremities. Some of this is concerning for possible autoimmune arthritic changes. At this time prior to moving forward with any sort of oral anti-inflammatories for the midfoot arthritis I would recommend a rheumatoid panel. This was ordered today. I also recommended nightly contrast bathing with ice and heat tohelp minimize some of his symptomatology. I discussed the importance of stretching exercises particu larly targeting the gastroc-soleal complex. A home exercise program was printed off and given to the patient today. Complete daily as instructed. Finally, I recommended orthotic therapy to support the midfoot and prevent dorsal jamming of the midfoot joints. Patient was wearing sandals today and sohe was unable to be fitted with orthotics. I recommend coming back at his convenience with shoes totry the power step orthoses. I would like to follow up with him after he has had the lab work done.If there are abnormal findings I will refer him to Rheumatology. If not we will initiate treatment with the anti-inflammatory regimen. This note was created with the assistance of a speech recognition program. While intending to generate a timely document that accurately reflects the content of the visit, no guarantee can be provided that every grammatical or spelling mistake has been or will be identified or corrected. Thank you for your understanding. Sathish Fuchs DPM [1] Past Medical History: Diagnosis Date Diabetes mellitus type II, controlled ([facility]) 08/2025 Diet controlled at this time Gout HTN (hypertension) [2] Current Outpatient Medications: colchicine 0.6 MG tablet, TAKE 2 TABLETS BY MOUTH AT THE START OF FLARE, FOLLOWED BY 1 TABLET 1 HOUR LATER. USE NEEDED DIRECTED., Disp: , Rfl: hydroCHLOROthiazide (HYDRODiuril) 25 MG tablet, Take 25 mg by mouth Daily, Disp: , Rfl: lisinopril 40 MG tablet, Take 40 mg by mouth Daily, Disp: , Rfl: [3] History reviewed. No pertinent surgical history. [4] No family history on file. documented in this encounter Plan of Treatment NameTypePriorityAssociated DiagnosesOrder ScheduleANA SCR, IFA W/REFL TITER/PATTERN/MPX AB CASCADELabRoutine Autoimmune disease (HCC) Ordered: 09/11/2025BC and differentialLabRoutine Autoimmune disease (HCC) Ordered: 09/11/2025-reactive proteinLabRoutine Autoimmune disease (HCC) Ordered: 09/11/2025HLA-B27 antigenLabRoutine Autoimmune disease (HCC) Ordered: 09/11/2025Rheumatoid factorLabRoutine Autoimmune disease (HCC) Ordered: 09/11/2025Sedimentation rate, automatedLabRoutine Autoimmune disease (HCC) Ordered: 09/11/2025Uric acidLabRoutine Autoimmune disease (HCC) Expected: 09/11/2025 (Approximate), Expires: 09/11/2026documented as of this encounter Procedures Procedure NamePriorityDate/TimeAssociated DiagnosisCommentsXR FOOT 3+ VIEWS LEFT Umnugby6809/11/2025 11:07 AM EST Autoimmune disease (HCC) Primary osteoarthritis of left ankle Left foot pain documented in this encounter Results * XR foot 3+ views left (09/11/2025 11:07 AM EST)Anatomical RegionLaterality ModalityLower Extremities, FootLeftRadiographic ImagingSpecimen (Source) Anatomical Location / LateralityCollection Method / VolumeCollection Time Received Time Narrative 09/11/2025 11:53 AM EST Imaging Result: AP, medial oblique, lateral views are weight-bearing. ??Slightly decreased calcaneal inclination. ??Large enthesophyte at the insertion of the Achilles tendon and plantar fascia. ??Degenerative changes of the talonavicular, naviculocuneiform and midfoot joints most notably the 2nd and 3rd tarsometatarsal joint. ??There is a large os peroneum over the calcaneal cuboid joint. ??Joint space narrowing and degenerative changes of the 1st MTP with subchondral sclerosis, mild periarticular osteophytes, subchondral cystic changes. ??No fractures or dislocations noted. ?? Increased soft tissue density and volume about the forefoot. Authorizing ProviderResult TypeResult StatusAnthnaty Fuchs DPMIMG XR PROCEDURESFinal Result documented in this encounter Visit Diagnoses Diagnosis Autoimmune disease (HCC)- Primary Autoimmune disease, not elsewhere classified Primary osteoarthritis of left ankle Diabetic polyneuropathy associated with type 2 diabetes mellitus (HCC) Difficulty walking Difficulty in walking Left foot pain Pain in soft tissues of limb documented in this encounter Care Teams Team MemberRelationshipSpecialtyStart DateEnd Date Mary Segundo NP [address] [place] [address] Nurse PractitionerFamily Bdsnuiqr79/24/25documented as of this encounter
--- OUTSIDE RECORDS SUMMARY | 2025-09-11 11:10 | XMS_ITS | Encounter Summary ---
Author Organization [facility] Address [address] [place] [address] Care Team Providers Care Hydrostatic Tubing Tester Name Role Phone Mary Segundo GRADER TENDER Unavailable [phone] Encounter Details DateTypeDepartmentCare Team (Latest Contact Info)Trrxpxzfxhm92/24/2025 11:10 AM ESTAncillary Procedure [facility] [address] [place] [address] Social History Tobacco UseTypesPacks/DayYears UsedDateSmoking Tobacco: NeverSmokeless Tobacco: NeverSex and Gender InformationValueDate RecordedSex Assigned at BirthNot on fileLegal AepUpnf0712/31/2022 8:05 PM EDTGender IdentityNot on fileSexual OrientationNot on filedocumented as of this encounter Plan of Treatment Not on file documented as of this encounter Procedures Procedure NamePriorityDate/TimeAssociated DiagnosisCommentsXR FOOT 3+ VIEWS LEFT Kxwmwle2209/11/2025 11:07 AM EST Autoimmune disease (HCC) Primary [...] volume about the forefoot. Authorizing ProviderResult TypeResult StatusSathish Fuchs DPMIMG XR PROCEDURESFinal Result documented in this encounter Visit Diagnoses Not on filedocumented in this encounter Care Teams Team MemberRelationshipSpecialtyStart DateEnd Date Mary Segundo NP [address] [place] [address] Nurse PractitionerFamily Guzyqvwo54/24/25documented as of this encounter
--- OUTSIDE RECORDS SUMMARY | 2025-09-11 11:55 | XMS_ITS | Clinical Summary ---
Author Organization [facility] Address [address] [place] [address] Care Team Providers Care Trains Dispatcher Supervisor Name Role Phone Mary Segundo TURPENTINER Unavailable [phone] Allergies No known active allergies Medications MedicationSigDispense QuantityRefillsLast FilledStart DateEnd DateStatus colchicine 0.6 MG tablet TAKE 2 TABLETS BY MOUTH AT THE START OF FLARE, FOLLOWED BY 1 TABLET 1 HOUR LATER. USE NEEDED DIRECTED.Active hydroCHLOROthiazide (HYDRODiuril) 25 MG tablet Take 25 mg by mouth DailyActive lisinopril 40 MG tablet Take 40 mg by mouth DailyActive Encounters DateTypeDepartmentCare UibrUdkkfrwgrnq74/24/2025 11:10 AM ESTAncillary Procedure [facility] [address] [place] [address] 09/11/2025 10:15 AM ESTOffice Visit [facility] [address] [facility] [place] [address] Sathish Fuchs DPM Autoimmune disease (HCC) (Primary Dx); Primary osteoarthritis of left ankle; Diabetic polyneuropathy associated with type 2 diabetes mellitus (HCC); Difficulty walking; Left foot pain09/11/2025amboo flowsheet [facility] [address] [place] [address] Sathish Fuchs DPM 09/11/20255315Cbnqjw64/11/2025bstract [facility] [address] [place] [id number] Mc Morley DPM 06/26/2025bstract [facility] [address] [place] [address] Mc Morley DPM 06/22/2025bstract [facility] [address] [place] [id number] Mc Morley DPM from Last 3 Months Family History RelationNameStatusCommentsFatherDeceasedMotherUnknown Social History Tobacco UseTypesPacks/DayYears UsedDateSmoking Tobacco: NeverSmokeless Tobacco: Never Tobacco Cessation:Counseling Given: Not Answered Sex and Gender InformationValueDate RecordedSex Assigned at BirthNot on file Legal TgvFrsk3412/31/2022 8:05 PM EDTGender IdentityNot on fileSexual Orientation Not on file Plan of Treatment Health MaintenanceDue DateLast DoneCommentsCT Sarpqnvjyloo1977Colonoscopy 1977Colorectal Cancer Pqanqktwp1977FIT-DNA1977FIT1977 FOBT04/07/19773516Zlpyocreamyhp1977COVID-19 Vaccine ( season) 5007/01/2025, 02/05/2024, 09/20/2021, Additional history existsInfluenza PtemajdYsgohudxg03/13/2025, 09/13/2022, 09/20/2021neumococcal Vaccine: Pediatrics (0 to 5 Years) and At-Risk Patients (6 to 64 Years)Aged OutNo longer eligible based on patient's age to complete this topic Procedures Procedure NamePriorityDate/TimeAssociated DiagnosisCommentsXR FOOT 3+ VIEWS LEFT Spifgne0609/11/2025 11:07 AM EST Autoimmune disease (HCC) Primary osteoarthritis of left ankle Left foot pain from Last 3 Months Results * XR foot 3+ views left [...] TypeResult StatusAnthnaty Fuchs DPMIMG XR PROCEDURESFinal Result from Last 3 Months Insurance * Guarantor: Sven Hernandez EAccount TypeRelation to PatientDate of PhoneBilling AddressPersonal/KouacgHymv1977 [id number] [place] [address] Care Teams Team MemberRelationshipSpecialtyStart DateEnd Date Mary Segundo NP [address] [place] [address] Nurse PractitionerFamily Qvhqwnjc87/24/25
--- OUTSIDE RECORDS SUMMARY | 2025-09-11 11:55 | XMS_ITS | Encounter Summary ---
Author Organization [facility] Address [address] [place] [address] Care Team Providers Care Electrical Journeyman Name Role Phone Mary Segundo CORE FILER Unavailable [phone] Encounter Details DateTypeDepartmentCare Team (Latest Contact Info)Cuklwzjfamm91/24/2025amboo flowsheet [facility] [address] [place] [phone] Sathish Fuchs, DPM [address] [place], [place] [phone] Social History Tobacco UseTypesPacks/DayYears UsedDateSmoking Tobacco: NeverSmokeless Tobacco: NeverSex and Gender InformationValueDate RecordedSex Assigned at BirthNot on fileLegal GoeRvpk4112/31/2022 8:05 PM EDTGender IdentityNot on fileSexual OrientationNot on filedocumented as of this encounter Plan of Treatment Not on file documented as of this encounter Visit Diagnoses Not on filedocumented in this encounter Care Teams Team MemberRelationshipSpecialtyStart DateEnd Date Mary Segundo NP [address] [place] [address] Nurse PractitionerFamily Mjgkgkqm94/24/25documented as of this encounter
--- OUTSIDE RECORDS SUMMARY | 2025-09-11 11:55 | XMS_ITS | Encounter Summary ---
Author Organization [facility] Address [address] [place] [address] Care Team Providers Care Casting Assistant Name Role Phone Mary Segundo CHARGING CRANE OPERATOR Unavailable Encounter Details DateTypeDepartmentCare Team (Latest Contact Info)Whydqpbtvic30/24/2025Travel Social History Tobacco UseTypesPacks/DayYears UsedDateSmoking Tobacco: NeverSmokeless Tobacco: NeverSex and Gender InformationValueDate RecordedSex Assigned at BirthNot on fileLegal PriXnyh6112/31/2022 8:05 PM EDTGender IdentityNot on fileSexual OrientationNot on filedocumented as of this encounter Plan of Treatment Not on file documented as of this encounter Visit Diagnoses Not on filedocumented in this encounter Care Teams Team MemberRelationshipSpecialtyStart DateEnd Date Mary Segundo NP [address] [place] [address] Nurse PractitionerFamily Ippbnwlc12/24/25documented as of this encounter
--- OUTSIDE RECORDS SUMMARY | 2025-09-11 11:56 | XMS_ITS | CCD ---
Author Organization [facility] Care Team Providers Care Rnp Name Role Phone Danica Byers Unavailable DANICA BYERS Attending Unavailable MODESTA, DANICA Admitting Unavailable MODESTA, DANICA Consulting Unavailable MODESTA, DANICA Admitting Unavailable MODESTA, DANICA Primary Care Unavailable MODESTA, DANICA Consulting Unavailable MODESTA, DANICA Attending Unavailable MODESTA, DANICA Admitting Unavailable MODESTA, DANICA Attending Unavailable MODESTA, HORTICULTURE/FLORICULTURE TEACHER DANICA Rg Attending Unavail able MODESTA, JAIME Rg Admitting Unavail able Santiago Adams MD Attending Provider NON STAFF Primary Care Provider Unavailabl e NO FAMILY, PHYSICIAN Primary Care Provider Adalid ilyakov DIASCMary Primary Care Provider Mary Dill Attending Provider [phone] Santiago Adams Admitting UnaSantiago Chen Attending Alireza cha NON STAFF Primary Care Unavailable Santiago Adams Attending Telmavai labken BARRIOS FAMILY, PHYSICIAN Primary Care Unavailable Santiago Adams Admitting Unavai labMary Lombardi Admitting Unavailable Mary Segundo Primary Care Unavailable Mary Segundo Attending Unavailable Medications Current Medications MedicationDrug Class(es)DatesSig (Normalized)Sig (Original)hydroCHLOROthiazide 25 mg oral tablet (5 sources)Thiazide DiureticStart: 04-10-2025 End: 72-95-1204cnmr 1 tablet by mouth once dailyHydrochlorothiazide 25 mg tablet Active 25 MG PO Daily 90 90 June 14, 2025 10:56am Complies with drug therapy Start: 04-06-2025 End: 46-50-5160hmay 1 tablet by mouth once dailyHydrochlorothiazide 12.5 mg tablet Discontinued 12.5 MG PO Daily April 06, 2025 12:00am March 11:12amlisinopril 40 mg oral tablet (6 sources)Angiotensin Converting Enzyme InhibitorStart: 05-69-7384lkim 1 tablet by mouth once dailyLisinopril 40 mg tablet Active 40 MG PO Daily April 06, 2025 12:00am Complies with drug therapyStart: 67-12-2715dmtr 1 tablet by mouth every twenty-four hoursLisinopril 20 MG 1 tablet Orally Once a day for 30 days Aug, ActiveStart: 36-89-9828uwry 1 tablet by mouth every twenty-four hours Lisinopril 10 MG 1 tablet Orally Once a day for 30 days Aug, Active Completed/Discontinued Medications MedicationDrug Class(es)DatesSig (Normalized)Sig (Original)amLODIPine 5 mg oral tablet (2 sources)Dihydropyridine Calcium Channel BlockerStart: 04-10-2025 End: 71-10-3928rpvr 1 tablet by mouth once dailyAmlodipine 5 mg tablet Discontinued 5 MG PO Daily April 10, 2025 12:00am June 14, 2025 10 :37am Problems Problem ClassificationProblemDateDocumented DateEpisodic/ChronicDiabetes mellitus without complication (7 sources)Type 2 diabetes mellitus without complication; Translations: [Type 2 diabetes mellitus without complications]ChronicEssential hypertension (18 sources)Essential hypertension; Translations: [Essential (primary) hypertension]Onset: 72-43-1961RcwkgtwDhwtkjgvbgds with complications and secondary hypertension (3 sources)Heart disease; Translations: [Hypertensive heart disease without heart failure]Onset: [id number] aftercare (1 source)Encounter for follow-up examination after completed treatment for conditions other than malignant neoplasmEpisodicOther circulatory disease (1 source)Elevated blood-pressure reading, without diagnosis of hypertension EpisodicOther connective tissue disease (1 source)Pain in right foot; Translations: [Pain in right foot]Onset: 40-66-8380HffgtpidNssku connective tissue disease (1 source)Other specified soft tissue disorders; Translations: [Other specified soft tissue disorders]Onset: 61-56-7376HqsuadqfDwlzn non-traumatic joint disorders (1 source)Pain in right knee; Translations: [Pain in right knee]Onset: 11-89-0929TwdrgyusClxkwlhx codes; unclassified (3 sources)Family history of coronary arteriosclerosis; Translations: [Family history of ischemic heart disease and other diseases of the circulatory system] 00-53-1631Zxfltcsv Results Test NameValueInterpretationReference RangeFacilityANA with Reflexon 05-19-2025 [place] with ReflexNegativeNormalNegativeThe Psychiatric Hospital Physician GroupComment on above:Order Comment: Reason for Exam Leg swellingResult Comment: Performed at: [facility] [id number] Performance Improvement Coordinator: Chip Moran PhD, Phone: [phone] PERFORMED BY: [place] [address] PATHOLOGIST MANAGER MONITORING PAUL MCRAE M.D.Performed By: #### URIC, HSCRP, CMP, ESR, CBC #### [facility] [address] [place] [address] #### LESLEY CHOICE #### [facility] ,Alanine aminotransferase [Enzymatic activity/volume] in Serum or PlasmaOrdered By: Mary Segundo on 97-61-7169XHL [Catalytic activity/Vol]12 U/L7-52 Protestant HospitalComment on above:Order Comment: Reason for Exam Leg swellingPerformed By: #### URIC, HSCRP, CMP, ESR, CBC #### [facility] [address] [place] [address] [place] #### LESLEY CHOICE #### [facility] ,Albumin [Mass/volume] in Serum or Plasma by Bromocresol green (BCG) dye binding methoOrdered By: Mary Segundo on 35-82-6263Huvyyke BCG dye [Mass/Vol]4.1 g/dL3.5-5.7FHolzer Health SystemAlkaline phosphatase [Enzymatic activity/volume] in Serum or PlasmaOrdered By: Mary Segundo on 16-90-0906QMI [Catalytic activity/Vol]80 U/O86-094VpfpxkwqcProtestant HospitalComment on above:Order Comment: Reason for Exam Leg swellingPerformed By: #### URIC, HSCRP, CMP, ESR, CBC #### [address] #### LESLEY CHOICE #### [facility] ,Aspartate aminotransferase [Enzymatic activity/volume] in Serum or Plasma Ordered By: Mary Segundo on 55-40-0530BNC [Catalytic activity/Vol]11 U/LLow 13-39Protestant HospitalComment on above:Order Comment: Reason for Exam Leg swellingPerformed By: #### URIC, HSCRP, CMP, ESR, CBC #### [address] #### LESLEY CHOICE #### [facility] ,Basophils [#/volume] in Blood by Automated countOrdered By: Mary Segundo on 76-36-3110Qbhcqbdku (Bld) [#/Vol]0.1 10*3/uL0.0-0.2FHolzer Health SystemComment on above:Order Comment: Reason for Exam Leg swellingPerformed By: #### URIC, HSCRP, CMP, ESR, CBC #### [place] [address] [place] #### LESLEY CHOICE #### [facility] ,Basophils/100 leukocytes in Blood by Automated countOrdered By: Mary Segundo on 58-50-4892Alctlmhfj/100 WBC (Bld)1.1 %.Protestant HospitalComment on above:Order Comment: Reason for Exam Leg swellingPerformed By: #### URIC, HSCRP, CMP, ESR, CBC #### [place] [address] [place] #### LESLEY CHOICE #### [facility] ,Bilirubin.total [Mass/volume] in Serum or PlasmaOrdered By: Mary Segundo on 74-36-5725Anahxdznj [Mass/Vol]0.7 mg/dL0.3-1.0[facility] Comment on above:Order Comment: Reason for Exam Leg swellingPerformed By: #### URIC, HSCRP, CMP, ESR, CBC #### [facility] [address] [place] [address] #### LESLEY CHOICE #### [facility] ,C reactive protein [Mass/volume] in Serum or Plasma by High sensitivity method Ordered By: Mary Segundo on 48-20-0733AQE High sensitivity method [Mass/Vol] 27.4 mg/LHigh0.0-0.9Protestant HospitalComment on above: Cardiovascular Risk Classification (AHA/CDC)hsCRP < 1.0 mg/l low relative risk for CVDhsCRP 1.0-3.0 mg/l average relative risk for CVDhsCRP > 3.0 mg/l high relative risk for CVDhsCRP > 7.5 mg/l active inflammation*Two results two weeks apart and averaged provide a morestable estimate of hsCRP level.*hsCRP levels > 7.5 mg/l may suggest infection that canlimit the use of this marker for estimation of CVD risk.Calcium [Mass/volume] in Serum or PlasmaOrdered By: Mary Segundo on 91-42-1581Tlejrhh [Mass/Vol]9.0 mg/dL8.6-10.3FHolzer Health SystemComment on above:Order Comment: Reason for Exam Leg swellingPerformed By: #### URIC, HSCRP, CMP, ESR, CBC #### [place] [address] [place] #### LESLEY CHOICE #### [facility] ,Carbon dioxide, total [Moles/volume] in Serum or PlasmaOrdered By: Mary Segundo on 02-96-0063EQ5 [Moles/Vol]30.6 mmol/L21.0-31.0Protestant HospitalComment on above:Order Comment: Reason for Exam Leg swelling Performed By: #### URIC, HSCRP, CMP, ESR, CBC #### [place] [address] [place] #### LESLEY CHOICE #### [facility] ,Chloride [Moles/volume] in Serum or PlasmaOrdered By: Mary Segundo on 90-64-6878Hskkoxuy [Moles/Vol]103 mmol/V00-338AcapzvggsProtestant Hospital Comment on above:Order Comment: Reason for Exam Leg swellingPerformed By: #### URIC, HSCRP, CMP, ESR, CBC #### [facility] [address] [place] [address] [place] #### LESLEY CHOICE #### [facility] ,Complete Blood Count Auto Diffon 59-49-9696Tahc Corpuscular HGB Conc33.7 g/dL Jjmmwj60.5-35.6The Psychiatric Hospital Physician GroupComment on above:Order Comment: Reason for Exam Leg swellingPerformed By: #### URIC, HSCRP, CMP, ESR, CBC #### [facility] [address] [place] [address] #### LESLEY CHOICE #### [facility] ,NRBC%0.0 /100{WBC}Normal0-0.5The Psychiatric Hospital Physician GroupComment on above: Order Comment: Reason for Exam Leg swellingPerformed By: #### URIC, HSCRP, CMP, ESR, CBC #### [address] #### LESLEY CHOICE #### [facility] ,White Blood Count11.9 [CFU]/mLHigh4.1-10.5The Psychiatric Hospital Physician GroupComment on above:Order Comment: Reason for Exam Leg swellingPerformed By: #### URIC, HSCRP, CMP, ESR, CBC #### [facility] [address] [place] [address] [place] #### LESLEY CHOICE #### [facility] ,Comprehensive Metabolic Panelon 15-00-2603Wxyuoxn [Mass/Vol]4.1 g/dLNormal 3.5-5.7The Psychiatric Hospital Physician GroupComment on above:Order Comment: Reason for Exam Leg swellingPerformed By: #### URIC, HSCRP, CMP, ESR, CBC #### [place] [address] [place] #### LESLEY CHOICE #### [facility] ,GFR/1.73 sq M.predicted MDRD (S/P/Bld) [Vol rate/Area]mL/min/{1.73_m2}NormalThe Psychiatric Hospital Physician GroupComment on above:Order Comment: Reason for Exam Leg swellingPerformed By: #### URIC, HSCRP, CMP, ESR, CBC #### [place] [address] [place] #### LESLEY CHOICE #### [facility] ,Creatinine [Mass/volume] in Serum or PlasmaOrdered By: Mary Segundo on 23-30-8300Gaiisxtkrl [Mass/Vol]0.87 mg/dL0.70-1.30Protestant HospitalComment on above:Order Comment: Reason for Exam Leg swellingPerformed By: #### URIC, HSCRP, CMP, ESR, CBC #### [address] #### LESLEY CHOICE #### [facility] ,Eosinophils [#/volume] in Blood by Automated countOrdered By: Mary Segundo on 34-86-3261Mfdzpurhcqt (Bld) [#/Vol]0.3 10*3/uL0.0-0.45Protestant HospitalComment on above:Order Comment: Reason for Exam Leg swelling Performed By: #### URIC, HSCRP, CMP, ESR, CBC #### [place] [address] [place] #### LESLEY CHOICE #### [facility] ,Eosinophils/100 leukocytes in Blood by Automated countOrdered By: Mary Segundo on 42-14-7389Sftvmqylejx/100 WBC (Bld)2.2 %.Protestant HospitalComment on above:Order Comment: Reason for Exam Leg swellingPerformed By: #### URIC, HSCRP, CMP, ESR, CBC #### [facility] [address] [place] [address] [place] #### LESLEY CHOICE #### [facility] ,Erythrocyte Sedimentation Rateon 59-94-0381ORO (Bld) [Velocity]31 mm/hHigh0-14 The Psychiatric Hospital Physician GroupComment on above:Order Comment: Reason for Exam Leg swellingResult Comment: PERFORMED BY: [place] [address] PATHOLOGIST MANAGER MONITORING PAUL MCRAE M.D.Performed By: #### URIC, HSCRP, CMP, ESR, CBC #### [address] #### LESLEY CHOICE #### [facility] ,Erythrocyte distribution width [Ratio] by Automated countOrdered By: Mary Segundo on 87-29-8140Trnrwwtbtkv distribution width (RBC) [Ratio]15.0 %High 12.0-14.8Protestant HospitalComment on above:Order Comment: Reason for Exam Leg swellingPerformed By: #### URIC, HSCRP, CMP, ESR, CBC #### [address] #### LESLEY CHOICE #### [facility] ,Erythrocyte sedimentation rate by Photometric methodOrdered By: Mary Segundo on 76-70-4373UXE Photometric method (Bld) [Velocity]31 mm/hrHigh0-14 Protestant HospitalErythrocytes [#/volume] in Blood by Automated countOrdered By: Mary Segundo on 68-80-2307FLM (Bld) [#/Vol]4.58 10*6/uL 3.90-5.60Protestant HospitalComment on above:Order Comment: Reason for Exam Leg swellingPerformed By: #### URIC, HSCRP, CMP, ESR, CBC #### [place] [address] [place] #### LESLEY CHOICE #### [facility] ,Glucose [Mass/volume] in Serum or PlasmaOrdered By: Mary Segundo on 32-15-0358Bkrldct [Mass/Vol]104 mg/dVVjrl50-336JlapspsjrProtestant Hospital Comment on above:ADA recommended reference rangeRandom Glucose Reference Range is dependent on time and content of last meal. Glucose of more than 200 mg/dL in a nonstressed, ambulatory subject supports the diagnosisof Diabetes Mellitus. Order Comment: Reason for Exam Leg swellingResult Comment: Random Glucose Reference Range is dependent on time and content of last meal. Glucose of more than 200 mg/dL in a nonstressed, ambulatory subject supports the diagnosis of Diabetes Mellitus. ADA recommended reference rangePerformed By: #### URIC, HSCRP, CMP, ESR, CBC #### [address] #### LESLEY CHOICE #### [facility] ,Hematocrit [Volume Fraction] of Blood by Automated countOrdered By: Mary Segundo on 94-49-8750Iyjyrdcxuq (Bld) [Volume fraction]38.8 %38.8-50.0Protestant HospitalComment on above:Order Comment: Reason for Exam Leg swellingPerformed By: #### URIC, HSCRP, CMP, ESR, CBC #### [place] [address] [place] #### LESLEY CHOICE #### [facility] ,Hemoglobin [Mass/volume] in BloodOrdered By: Mary Segundo on 05-19-2025 Hemoglobin (Bld) [Mass/Vol]13.1 g/dL13.0-17.0[facility] Comment on above:Order Comment: Reason for Exam Leg swellingPerformed By: #### URIC, HSCRP, CMP, ESR, CBC #### [facility] [address] [place] [address] [place] #### LESLEY CHOICE #### [facility] ,High Sensitive CRPon 93-72-9557Ojre Sensitive CRP27.4 mg/LHigh0.0-0.9The Psychiatric Hospital Physician GroupComment on above:Order Comment: Reason for Exam Leg swellingResult Comment: Cardiovascular Risk Classification (AHA/CDC) hsCRP < 1.0 mg/l low relative risk for CVD hsCRP 1.0-3.0 mg/l average relative risk for CVD hsCRP > 3.0 mg/l high relative risk for CVD hsCRP > 7.5 mg/l active inflammation* Two results two weeks apart and averaged provide a more stable estimate of hsCRP level. *hsCRP levels > 7.5 mg/l may suggest infection that can limit the use of this marker for estimation of CVD risk. PERFORMED BY: [place] [address] PATHOLOGIST MANAGER MONITORING PAUL MCRAE M.D.Performed By: #### URIC, HSCRP, CMP, ESR, CBC #### [address] #### LESLEY CHOICE #### [facility] ,Leukocytes [#/volume] corrected for nucleated erythrocytes in Blood by Automated counOrdered By: Mary Segundo on 38-65-2593VKI corrected for nucl RBC Auto (Bld) [#/Vol]11.9 10*3/uLHigh4.1-10.5FHolzer Health System Leukocytes [#/volume] in Blood by Automated countOrdered By: Mary Segundo on 34-11-4478YRB (Bld) [#/Vol]11.9 10*3/uLHigh4.1-10.5FHolzer Health SystemComment on above:Order Comment: Reason for Exam Leg swellingPerformed By: #### URIC, HSCRP, CMP, ESR, CBC #### [address] #### LESLEY CHOICE #### [facility] ,Lymphocytes [#/volume] in Blood by Automated countOrdered By: Mary Segundo on 84-43-4197Tjyooevwgfv (Bld) [#/Vol]2.2 10*3/uL1.00-4.8Pro[facility]ant HospitalComment on above:Order Comment: Reason for Exam Leg swelling Performed By: #### URIC, HSCRP, CMP, ESR, CBC #### [place] [address] [place] #### LESLEY CHOICE #### [facility] ,Lymphocytes/100 leukocytes in Blood by Automated countOrdered By: Mary Segundo on 24-38-2309Effmtokqxgg/100 WBC (Bld)18.6 %.Protestant HospitalComment on above:Order Comment: Reason for Exam Leg swellingPerformed By: #### URIC, HSCRP, CMP, ESR, CBC #### [facility] [address] [place] [address] [place] #### LESLEY CHOICE #### [facility] ,MCH [Entitic mass] by Automated countOrdered By: Mary Segundo on 05-19-2025 MCH (RBC) [Entitic mass]28.5 pg27.5-35.2FHolzer Health SystemComment on above:Order Comment: Reason for Exam Leg swellingPerformed By: #### URIC, HSCRP, CMP, ESR, CBC #### [address] #### LESLEY CHOICE #### [facility] ,MCHC Auto (RBC) [Mass/Vol]Ordered By: Mary Segundo on 82-61-5953RFFN (RBC) [Mass/Vol]33.7 g/dL32.5-35.6FHolzer Health SystemMCV [Entitic volume] by Automated countOrdered By: Mary Segundo on 63-75-6990UOG (RBC) [Entitic vol]84.6 fL83.5-101Protestant HospitalComment on above: Order Comment: Reason for Exam Leg swellingPerformed By: #### URIC, HSCRP, CMP, ESR, CBC #### [facility] [address] [place] [address] [place] #### LESLEY CHOICE #### [facility] ,Monocytes [#/volume] in Blood by Automated countOrdered By: Mary Segundo on 27-00-2163Cxemgvdgt (Bld) [#/Vol]0.9 10*3/uLHigh0.0-0.8Protestant HospitalComment on above:Order Comment: Reason for Exam Leg swelling Performed By: #### URIC, HSCRP, CMP, ESR, CBC #### [place] [address] [place] #### LESLEY CHOICE #### [facility] ,Monocytes/100 leukocytes in Blood by Automated countOrdered By: Mary Segundo on 27-73-2470Keotbsxum/100 WBC (Bld)7.5 %.Protestant HospitalComment on above:Order Comment: Reason for Exam Leg swellingPerformed By: #### URIC, HSCRP, CMP, ESR, CBC #### [address] #### LESLEY CHOICE #### [facility] ,Neutrophils [#/volume] in Blood by Automated countOrdered By: Mary Segundo on 68-72-6579Nnkmnkseujc (Bld) [#/Vol]8.4 10*3/uLHigh1.8-7.7FHolzer Health SystemComment on above:Order Comment: Reason for Exam Leg swelling Performed By: #### URIC, HSCRP, CMP, ESR, CBC #### [place] [address] [place] #### LESLEY CHOICE #### [facility] ,Neutrophils/100 leukocytes in Blood by Automated countOrdered By: Mary Segundo on 46-46-1152Gmdjegtciqm/100 WBC (Bld)70.6 %.Protestant HospitalComvon [facility] on above:Order Comment: Reason for Exam Leg swellingPerformed By: #### URIC, HSCRP, CMP, ESR, CBC #### [facility] [address] [place] [address] [place] #### LESLEY CHOICE #### [facility] ,No Panel InformationOrdered By: Mary Segundo on 72-19-3354Qgqcqvgfn GFR (CKD-EPI)> 60.0 mL/MinProtestant HospitalPharmacy Creatinine Clearance (ChemN/AFHolzer Health SystemNucleated erythrocytes [Presence] in Blood by Automated countOrdered By: Mary Segundo on 05-19-2025 Nucleated RBC Auto Ql (Bld)0.0 /100{WBC}0-0.5FHolzer Health System Platelet mean volume [Entitic volume] in Blood by Automated countOrdered By: Mary Segundo on 03-50-2148Yxkrctaf mean volume (Bld) [Entitic vol]8.8 fL 6.6-10.1FHolzer Health SystemComment on above:Order Comment: Reason for Exam Leg swellingPerformed By: #### URIC, HSCRP, CMP, ESR, CBC #### [place] [address] [place] #### LESLEY CHOICE #### [facility] ,Platelets [#/volume] in Blood by Automated countOrdered By: Mary Segundo on 59-81-7160Zcatxbihx (Bld) [#/Vol]234 10*3/sW504-216ZpcsglvtjProtestant HospitalComment on above:Order Comment: Reason for Exam Leg swellingPerformed By: #### URIC, HSCRP, CMP, ESR, CBC #### [facility] [address] [place] [address] [place] #### LESLEY CHOICE #### [facility] ,Potassium [Moles/volume] in Serum or PlasmaOrdered By: Mary Segundo on 33-11-3116Oxrbcstta [Moles/Vol]4.1 mmol/L3.5-5.1FHolzer Health SystemComment on above:Order Comment: Reason for Exam Leg swellingPerformed By: #### URIC, HSCRP, CMP, ESR, CBC #### [facility] [address] [place] [address] [place] #### LESLEY CHOICE #### [facility] ,Protein [Mass/volume] in Serum or PlasmaOrdered By: Mary Segundo on 34-94-1825Lswfrnw [Mass/Vol]6.9 g/dL6.4-8.9[facility] Comment on above:Order Comment: Reason for Exam Leg swellingPerformed By: #### URIC, HSCRP, CMP, ESR, CBC #### [facility] [address] [place] [address] [place] #### LESLEY CHOICE #### [facility] ,Serum globulin measurement by calculation (mass/volume)Ordered By: Mary Segundo on 88-96-2952Kbswvocr (S) [Mass/Vol]2.8 g/dLProtestant HospitalComment on above:Order Comment: Reason for Exam Leg swellingPerformed By: #### URIC, HSCRP, CMP, ESR, CBC #### [place] [address] [place] #### LESLEY CHOICE #### [facility] ,Serum or plasma albumin/globulin mass ratioOrdered By: Mary Segundo on 98-25-6665Dasfqyl/Globulin [Mass ratio]1.5 {ratio}Protestant HospitalComment on above:Order Comment: Reason for Exam Leg swellingPerformed By: #### URIC, HSCRP, CMP, ESR, CBC #### [place] [address] [place] #### LESLEY CHOICE #### [facility] ,Serum or plasma anion gap determinationOrdered By: Mary Segundo on 43-05-5093Udqfg gap [Moles/Vol]9.5 mmol/L6.0-15.0Protestant HospitalComment on above:Order Comment: Reason for Exam Leg swellingPerformed By: #### URIC, HSCRP, CMP, ESR, CBC #### [place] [address] [place] #### LESLEY CHOICE #### [facility] ,Serum or plasma free cefuroxime measurement (mass/volume)Ordered By: Mary Segundo on 49-52-2338Tsjksnvvst free [Mass/Vol]NegativeNegativeProtestant HospitalComment on above:Performed at: [address] [id number] Director: Chip Moran PhD, Phone: [phone] [Moles/volume] in Serum or PlasmaOrdered By: Mary Sanya on 76-84-3285Hwpkcs [Moles/Vol]139 mmol/S789-793AdeleomepProtestant HospitalComment on above:Order Comment: Reason for Exam Leg swellingPerformed By: #### URIC, HSCRP, CMP, ESR, CBC #### [place] [address] [place] #### LESLEY CHOICE #### [facility] ,Urate [Mass/volume] in Serum or PlasmaOrdered By: Mary Segundo on 99-77-0240Yywzg [Mass/Vol]9.4 mg/dLHigh4.4-7.6FHolzer Health System Comment on above:Order Comment: Reason for Exam Leg swellingResult Comment: PERFORMED BY: [place] [address] PATHOLOGIST MANAGER MONITORING PAUL MCRAE M.D.Performed By: #### URIC, HSCRP, CMP, ESR, CBC #### [address] #### LESLEY CHOICE #### [facility] ,Urea nitrogen [Mass/volume] in Serum or PlasmaOrdered By: Mary Segundo on 89-42-9143Yowe nitrogen [Mass/Vol]10 mg/dL7-25[facility] Comment on above:Order Comment: Reason for Exam Leg swellingPerformed By: #### URIC, HSCRP, CMP, ESR, CBC #### [place] [address] [place] #### LESLEY CHOICE #### [facility] ,X-ray reportOrdered By: Mickey Fall on 79-42-1985Wbxql [facility] [place] [address] [place] [address] XRay Report Signed Patient: Sven Hernandez Breann#: [id number] : 1975 Acct:[id number] Age/Sex: 50 / M ADM Date: 5 Loc: XD Room: Type: [facility] CLI Attending Dr: Mary LYMAN Copies to: ESMER Alcantar~ Ordering Provider: ESMER Alcantar Date of Service: 05/19/25 XR/XR foot BI 3V: Acute pain of right knee;Pain in right foot X-rays of the bilateral feet, 3 views each foot indication: Pain COMPARISON: None FINDINGS: No fracture or desiccation identified. Cqct-ij-phtocjqf midfoot degenerative changes. Moderate plantar calcaneal and posterior calcaneal enthesophyte formation. Mild soft tissue swelling identified along both forefeet. No radiopaque foreign body identified. XR/XR foot BI 3V IMPRESSION: Mild/moderate degenerative changes. No fractures. No radiopaque foreign body. Impression dictated by: Mickey Fall M.D. 05/19/2025 8:48 PM Dictation Location: RADIO-PC-29 Transcribed By: [facility] 05/19/252047 Dictated By: Mickey Fall MD 05/19/252042 Signed By: 05/19/252047 [facility] Work Phone: X-ray reportOrdered By: Himanshu Watters on 05-19-2025 Study reportUN[facility] [place] [address] XRay Report Signed Patient: Sven Hernandez Breann#: [id number] : 1975 Acct:[id number] Age/Sex: 50 / M ADM Date: 5 Loc: XD Room: Type: [facility] CLI Attending Dr: Mary LYMAN Copies to: ESMER Alcantar~ Ordering Provider: ESMER Alcantar Date of Service: 05/19/25 XR/XR ankle BI 3V: Acute pain of right knee XR ankle BI 3V 05/19/2025 12:12 PM SIGNS AND SYMPTOMS: Right ankle pain and swelling. Pain intermittently along the arch of the left foot PROTOCOL: Frontal, lateral, and oblique radiographs of the bilateral ankles COMPARISON: None FINDINGS: The ankle mortise is preserved bilaterally. There is no fracture or dislocation. There is diffuse soft tissue swelling right greater than left. There is plantar and Achilles surface calcaneal spurring bilaterally. Mild degenerative changes are noted in the talonavicular joints, left greater than right. XR/XR ankle BI 3V IMPRESSION: No acute bony injury. Similar diffuse soft tissue swelling is noted. Degenerative changes are noted as above bilaterally. Impression dictated by: Himanshu Watters M.D. 05/19/2025 5:13 PM Dictation Location: [facility]-- Transcribed By: [facility] 05/19/251712 Dictated By: Himanshu Watters II, MD 05/19/251711 Signed By: 05/19/251712 [facility] Work Phone: [facility] Main [place] [address] [place] [address] XRay Report Signed Patient: Sven Hernandez R#: [id number] : 1975 Acct:[id number] Age/Sex: 50 / M ADM Date: 5 Loc: XD Room: Type: [facility] Attending Dr: Mary LYMAN Copies to: ESMER Alcantar~ Ordering Provider: ESMER Alcantar Date of Service: 05/19/25 XR/XR knee RT 2V: Acute pain of right knee XR knee RT 2V 05/19/2025 12:12 PM SIGNS AND SYMPTOMS: ^Acute pain of right knee PROTOCOL: Frontal and lateral radiograph of the right knee COMPARISON: None FINDINGS: There is mild narrowing of the weightbearing joint spaces greatest medially. There is mild patellofemoral joint space loss. There is mild tricompartmental spurring. There is a moderate joint effusion. No soft tissue swelling. No fracture. XR/XR knee RT 2V IMPRESSION: No acute bony injury. There is a moderate joint effusion. Mild tricompartmental degenerative changes are noted. Impression dictated by: Himanshu Watters M.D. 05/19/2025 5:12 PM Dictation Location: RADIO--24 Transcribed By: JO 05/19/251711 Dictated By: Himanshu Watters II, MD 05/19/251710 Signed By: 05/19/251711 [facility] Work Phone: XR ankle BI 3Von 56-51-4894PC ankle BI 3[facility] Main [place] [address] [place] [address] XRay Report Signed Patient: Sven Hernandez MR#: [id number] : 1975 Acct:[id number] Age/Sex: 50 / M ADM Date: 05/19/25 Loc: XD Room: Type: [facility] Attending Dr: Mary LYMAN Copies to: ESMER Alcantar Ordering Provider: ESMER Alcantar Date of Service: 05/19/25 XR/XR ankle BI 3V: Acute pain of right knee XR ankle BI 3V 05/19/2025 12:12 PM SIGNS AND SYMPTOMS: Right ankle pain and swelling. Pain intermittently along the arch of the left foot PROTOCOL: Frontal, lateral, and oblique radiographs of the bilateral ankles COMPARISON: None FINDINGS: The ankle mortise is preserved bilaterally. There is no fracture or dislocation. There is diffuse soft tissue swelling right greater than left. There is plantar and Achilles surface calcaneal spurring bilaterally. Mild degenerative changes are noted in the talonavicular joints, left greater than right. XR/XR ankle BI 3V IMPRESSION: No acute bony injury. Similar diffuse soft tissue swelling is noted. Degenerative changes are noted as above bilaterally. Impression dictated by: Himanshu Watters M.D. 05/19/2025 5:13 PM Dictation Location: RADIO--24 Transcribed By: JO 05/19/251712 Dictated By: Himanshu Watters II, MD 05/19/251711 Signed By: 05/19/25 [facility] Physician GroupXR foot BI 3Von 43-68-0908JT foot BI 3[facility] Main [address] [address] XRay Report Signed Patient: Sven Hernandez MR#: [id number] : 1975 Acct:[id number] Age/Sex: 50 / M ADM Date: 05/19/25 Loc: XD Room: Type: REG CLI Attending Dr: Mary Segundo OIL RECOVERY OPERATOR-C Copies to: ESMER Alcantar Ordering Provider: ESMER Alcantar Date of Service: 05/19/25 XR/XR foot BI 3V: Acute pain of right knee;Pain in right foot X-rays of the bilateral feet, 3 views each foot indication: Pain COMPARISON: None FINDINGS: No fracture or desiccation identified. Pxun-iq-mvczqmhz midfoot degenerative changes. Moderate plantar calcaneal and posterior calcaneal enthesophyte formation. Mild soft tissue swelling identified along both forefeet. No radiopaque foreign body identified. XR/XR foot BI 3V IMPRESSION: Mild/moderate degenerative changes. No fractures. No radiopaque foreign body. Impression dictated by: Mickey Fall M.D. 05/19/2025 8:48 PM Dictation Location: [place] [address] Transcribed By: [facility] 05/19/252047 Dictated By: Mickey Fall MD 05/19/252042 Signed By: 05/19/252047[facility] Physician GroupXR knee RT 2Von 72-25-8140CG knee RT 2[facility] Main [address] [address] XRay Report Signed Patient: Sven Hernandez MR#: [id number] : 1975 Acct:[id number] Age/Sex: 50 / M ADM Date: 05/19/25 Loc: XD Room: Type: REG CLI Attending Dr: Mary Segundo OIL RECOVERY OPERATORRupalC Copies to: ESMER Alcantar Ordering Provider: ESMER Alcantar Date of Service: 05/19/25 XR/XR knee RT 2V: Acute pain of right knee XR knee RT 2V 05/19/2025 12:12 PM SIGNS AND SYMPTOMS: Acute pain of right knee PROTOCOL: Frontal and lateral radiograph of the right knee COMPARISON: None FINDINGS: There is mild narrowing of the weightbearing joint spaces greatest medially. There is mild patellofemoral joint space loss. There is mild tricompartmental spurring. There is a moderate joint effusion. No soft tissue swelling. No fracture. XR/XR knee RT 2V IMPRESSION: No acute bony injury. There is a moderate joint effusion. Mild tricompartmental degenerative changes are noted. Impression dictated by: Himanshu Watters M.D. 05/19/2025 5:12 PM Dictation Location: [place] [address] Transcribed By: [facility] 05/19/251711 Dictated By: Himanshu Watters II, MD 05/19/251710 Signed By: 05/19/251711[facility] Physician [facility] Residential CenterAldosteroneon 04-10-2025 Aldosterone9.3 ng/dLNormal0.0-30.0[facility] Physician GroupComment on above: Order Comment: Patient Posture before Draw (see Test/Proc Notes):: AMBULATORY Result Comment: This test was developed and its performance characteristics determined by [facility]. It has not been cleared or approved by the Food and Drug Administration. Performed at: [address] [id number] Performance Improvement Coordinator: Marika Bledsoe MD, Phone: [phone] PERFORMED BY: [facility] [address] [place] [address] PATHOLOGIST MANAGER MONITORING PAUL MCRAE M.D.Performed By: #### ALD, RENACT ####[facility] ,#### TSH3 wRFLX, BMP ####[facility] [id number] [place] [address] USABasic Metabolic Panelon 94-51-5797ZNO/1.73 sq M.predicted MDRD (S/P/Bld) [Vol rate/Area]mL/min/{1.73_m2}NormalThe Psychiatric Hospital Physician GroupComment on above:Performed By: #### ALD, RENACT ####[facility] ,#### TSH3 wRFLX, BMP ####[address] [address] USACalcium [Mass/volume] in Serum or PlasmaOrdered By: Santiago Adams on 29-74-3978Hcnzahg [Mass/Vol]9.1 mg/dL8.6-10.3FHolzer Health SystemComment on above:Performed By: #### ALD, RENACT ####[facility] ,#### TSH3 wRFLX, BMP ####[place] [id number] USACarbon dioxide, total [Moles/volume] in Serum or PlasmaOrdered By: Santiago Adams on 33-52-0997UB2 [Moles/Vol]29.7 mmol/L21.0-31.0Pro[facility]ant HospitalComment on above:Performed By: #### ALD, RENACT ####[facility] ,#### TSH3 wRFLX, BMP ####[place] [address] USAChloride [Moles/volume] in Serum or PlasmaOrdered By: Santiago Adams on 04-10-2025 Chloride [Moles/Vol]105 mmol/J09-067HeeltfrdjProtestant HospitalComment on above:Performed By: #### ALD, RENACT ####[facility] ,#### TSH3 wRFLX, BMP ####[address] [address] [place] Creatinine [Mass/volume] in Serum or PlasmaOrdered By: Santiago Adams on 69-52-2062Egddjdsqym [Mass/Vol]0.89 mg/dL0.70-1.30Protestant HospitalComment on above:Performed By: #### ALD, RENACT ####[facility] ,#### TSH3 wRFLX, BMP ####[facility] [address] [place] [address] USAFPG ECG *CARDIOLOGY ONLY*on 54-61-1433LDJ ECG *CARDIOLOGY ONLY*[facility] [address] [place] [address] [place] [address] Electrocardiograph Report Signed Patient: Sven Hernandez MR#: [id number] : 1975 Acct:[id number] Age/Sex: 50 / M ADM Date: 04/10/25 Loc: EKGCARDIO Room: Type: [facility] Attending Dr: Santiago Adams MD Ordering Provider: Santiago Adams MD Date of Service: 04/10/25 ECG/FPG ECG *CARDIOLOGY ONLY*: I10 - Essential (primary) hypertension Copies to: Test Reason : Blood Pressure : */* mmHG Vent. Rate : 74 BPM Atrial Rate : 74 BPM P-R Int : 160 ms QRS Dur : 98 ms QT Int : 408 ms P-R-T Axes : 23 -12 70 degrees QTcB Int : 452 ms Normal sinus rhythm Normal ECG Confirmed by Deidre Louie ([id number]) on 04/10/2025 8:20:25 PM Referred By: Electronically Signed By: Deidre Louie Transcribed By: MUS Signed By Deidre Louie MD [address] [place] [address] Physician [facility]idential CenterGlucose [Mass/volume] in Serum or PlasmaOrdered By: Santiago Adams on 08-32-2349Tejivhe [Mass/Vol]111 mg/dLHigh 70-100Protestant HospitalComment on above:ADA recommended reference rangeRandom Glucose Reference Range is dependent on time and content of last meal. Glucose of more than 200 mg/dL in a nonstressed, ambulatory subject supports the diagnosisof Diabetes Mellitus.Result Comment: Random Glucose Reference Range is dependent on time and content of last meal. Glucose of more than 200 mg/dL in a nonstressed, ambulatory subject supports the diagnosis of Diabetes Mellitus. ADA recommended reference rangePerformed By: #### ALD, RENACT ####[facility] ,#### TSH3 wRFLX, BMP ####[place] [address] [place] [address] USANo Panel InformationOrdered By: Santiago Adams on 80-97-4812Vhmabaspq GFR (CKD-EPI)> 60.0 mL/MinProtestant Hospital Pharmacy Creatinine Clearance (ChemN/AFHolzer Health SystemPotassium [Moles/volume] in Serum or PlasmaOrdered By: Santiago Adams on 04-10-2025 Potassium [Moles/Vol]3.8 mmol/L3.5-5.1FHolzer Health SystemComment on above:Performed By: #### ALD, RENACT ####[facility] ,#### TSH3 wRFLX, BMP ####[place] [address] [place] [address] USARenin Activityon 41-30-5969Malth Activity0.335Vsvcdd2.167-5.380[facility] Hospital Physician GroupComment on above:Order Comment: Patient Posture before Draw (see Test/Proc Notes):: AMBULATORYResult Comment: This test was developed and its performance characteristics determined by [facility]. It has not been cleared or approved by the Food and Drug Administration. Performed at: [address] [id number] Performance Improvement Coordinator: Marika Bledsoe MD, Phone: [phone] PERFORMED BY: [facility] [address] [place] [address] PATHOLOGIST MANAGER MONITORING PAUL MCRAE M.D.Performed By: #### ALD, RENACT ####[facility] ,#### TSH3 wRFLX, BMP ####[place] [address] [place] [address] USARenin activityOrdered By: Santiago Adams on 16-61-9392Axmag (P) [Catalytic activity/Vol]0.220 ng/mL/hr0.167-5.380Protestant HospitalComment on above:This test was developed and its performance characteristicsdetermined by [facility]. It has not been cleared orapproved by the Food and Drug Administration.Performed at: [facility] [address] [id number] Director: Marika Bledsoe MD, Phone: [phone] or plasma aldosterone measurement (mass/volume) Ordered By: Santiago Adams on 90-75-2193Gntiaxtjpqf [Mass/Vol]9.3 ng/dL0.0-30.0 Protestant HospitalComment on above:This test was developed and its performance characteristicsdetermined by [facility]. It has not been cleared orapproved by the Food and Drug Administration.Performed at: [address] [id number] Director: Marika Bledsoe MD, Phone: [phone] or plasma anion gap determinationOrdered By: Santiago Adams on 56-10-7794Oqrwt gap [Moles/Vol]10.1 mmol/L6.0-15.0Protestant HospitalComment on above:Performed By: #### ALD, RENACT ####[facility] ,#### TSH3 wRFLX, BMP ####[facility] [address] [place] [address] USASodium [Moles/volume] in Serum or PlasmaOrdered By: Santiago Adams on 65-75-7409Juoxvg [Moles/Vol]141 mmol/R145-926CdvpjslxhProtestant HospitalComment on above:Performed By: #### ALD, RENACT ####[facility] ,#### TSH3 wRFLX, BMP ####[facility] [address] [place] [address] USAThyroid Stim Hormone w/Rflxon 72-13-0997Viqujdc Stim Hormone w/Rflx1.87 u[iU]/mLNormal0.45-5.33[facility] Hospital Physician GroupComment on above:Result Comment: PERFORMED BY: [facility] [address] [place] [address] PATHOLOGIST MANAGER MONITORING PAUL MCRAE M.D.Performed By: #### ALD, RENACT ####[facility] ,#### TSH3 wRFLX, BMP ####[place] [address] [place] [address] USAThyrotropin [Units/volume] in Serum or PlasmaOrdered By: Santiago Adams on 11-16-7339UIN Qn1.87 m[IU]/L0.45-5.33Protestant HospitalUrea nitrogen [Mass/volume] in Serum or PlasmaOrdered By: Santiago Adams on 40-13-0275Oqqb nitrogen [Mass/Vol]10 mg/dL7-Protestant HospitalComment on above:Performed By: #### ALD, RENACT ####[facility] ,#### TSH3 wRFLX, BMP ####[place] [address] [place] [address] USACBC w/ Auto Diffon 02-79-5954Qrccngmrx/100 WBC (Bld) 1.2 %Normal0.0-2.0St. Rita'S HospitalComment on above:Performed By: #### [id number] #### [facility] [address] [place] [address]Iciwfrjhx/Leukocytes Auto (Bld) [Pure # fraction]0.1 E9/LNormal 0.0-0.2FGrand Lake Joint Township District Memorial HospitalComment on above:Performed By: #### [id number] #### [facility] [address] [place], [place] [address]Yxrpsfvescd (Bld) [#/Vol]0.4 E9/LNormal0.0-0.5FGrand Lake Joint Township District Memorial HospitalComment on above:Performed By: #### [id number] #### [facility] [address] [place], [place] [address]Zzpnqwtxvns/100 WBC (Bld)3.6 %Normal0.0-8.0[facility]'S HospitalComment on above:Performed By: #### [id number] #### [facility] [address] [place], [place] [address]Mpofdgtdxuf distribution width (RBC) [Ratio]15.0 %High10.9-14.2 [facility]'S HospitalComment on above:Performed By: #### [id number] #### [facility] [address] [place] [address]Rfaordobvn (Bld) [Volume fraction]42.6 %Lnzrda58.7-49.0[facility]'S HospitalComment on above:Performed By: #### [id number] #### [facility] [address] [place] [address]Bpnehlghff (Bld) [Mass/Vol]14.9 g/fGHlutkz62.5-17.5FGrand Lake Joint Township District Memorial HospitalComment on above:Performed By: #### [id number] #### [facility] [address] [place] [address]Msrcbeqdxuf (Bld) [#/Vol]3.0 E9/LNormal1.0-4.0[facility]'S HospitalComment on above:Performed By: #### [id number] #### [facility] [address] [place] [address]Tkniudrzutm/100 WBC (Bld)24.2 %Stwffb07.0-50.0[facility]'S HospitalComment on above:Performed By: #### [id number] #### [facility] [address] [place] [address]EME (RBC) [Entitic mass]30.5 owGytvgp63.0-34.0St[facility]'S HospitalComment on above:Performed By: #### [id number] #### [facility] [address] [place], [place] [address]YUVF (RBC) [Mass/Vol]35.0 g/eXMzapyv71.4-36.0[facility]'S HospitalComment on above:Performed By: #### [id number] #### [facility] [address] [place] [address]ICH (RBC) [Entitic vol]87.0 xFGmrfsu03.0-100.0[facility]'S HospitalComment on above:Performed By: #### [id number] #### [facility] [address] [place] [address]Bmehphjdo (Bld) [#/Vol]0.8 E9/LNormal0.2-1.0[facility]'S HospitalComment on above:Performed By: #### [id number] #### [facility] [address] [place] [address]Fcztcrgwblp (Bld) [#/Vol]8.0 E9/LHigh2.0-7.5FGrand Lake Joint Township District Memorial HospitalComment on above:Performed By: #### [id number] #### [facility] [address] [place] [address]Dlldfpflgjo/100 WBC (Bld)64.7 %Rtklkg53.0-75.0[facility]'S HospitalComment on above:Performed By: #### [id number] #### [facility] [address] [place] [address]Tkgacbth006.0 E9/ADeyqju758.0-500.0[facility] Comment on above:Performed By: #### [id number] #### [facility] [address] [place] [address]Cwiufyas mean volume (Bld) [Entitic vol]9.5 fLNormal6.4-10.8 [facility]S HospitalComment on above:Performed By: #### [id number] #### [facility] [address] [place] [address]DFW (Bld) [#/Vol]4.9 E12/LNormal4.3-5.9[facility] HospitalComment on above:Performed By: #### [id number] #### [facility] [address] [place] [address]KPX corrected for nucl RBC Auto (Bld) [#/Vol]12.4 E9/LHigh 4.0-11.0[facility]'S HospitalComment on above:Performed By: #### [id number] #### [facility] [address] [place], [place] [address]PYEon 84-97-2250Ypixvkp [Mass/Vol]4.2 g/dLNormal3.3-5.0[facility]S HospitalComment on above:Performed By: #### [id number] #### [facility] [address] [place], [place] [address]Pogrsdm/Globulin (S) [Mass conc ratio]1.3Qaupzv5.1-2.2FGrand Lake Joint Township District Memorial HospitalComment on above:Performed By: #### [id number] #### [facility] [address] [place] [address]DSF [Catalytic activity/Vol]75 Int._Unit/GTvpecl91-70OcoooiSt. Rita'S HospitalComment on above:Performed By: #### [id number] #### [facility] [address] [place] [address]DJZ No additional P-5'-P [Catalytic activity/Vol]24 Int._Unit/L Normal6-46St. [facility]'S HospitalComment on above:Performed By: #### [id number] #### [facility] [address] [place] [address]Ipuwv gap [Moles/Vol]11 mmol/LNormal6-16St. [facility]'S HospitalComment on above:Performed By: #### [id number] #### [facility] [address] [place], [place] [address]IVZ [Catalytic activity/Vol]17 Int._Unit/LNormal5-43St. [facility]'S HospitalComment on above:Performed By: #### [id number] #### [facility] [address] [place], [place] [address]Manzcfgra [Mass/Vol]0.7 mg/dLNormal0.0-1.1FGrand Lake Joint Township District Memorial HospitalComment on above:Performed By: #### [id number] #### [facility] [address] [place], [place] [address]Pavdgji [Mass/Vol]9.3 mg/dLNormal8.9-11.1FGrand Lake Joint Township District Memorial HospitalComment on above:Performed By: #### [id number] #### [facility] [address] [place], [place] [address]Ttwmnbfc [Moles/Vol]101 mmol/GEorivj837-028KpcofuSt. Rita'S HospitalComment on above:Performed By: #### [id number] #### [facility] [address] [place], [place] [address]BP6 [Moles/Vol]30 mmol/DJphmbv29-21LmfoehSt. Rita'S Hospital Comment on above:Performed By: #### [id number] #### [facility] [address] [place], [place] [address]Mmcfurzjsi [Mass/Vol]0.8 mg/dLNormal0.5-1.3FGrand Lake Joint Township District Memorial HospitalComment on above:Performed By: #### [id number] #### [facility] [address] [place], [place] [address]Lwtjkxer (S) [Mass/Vol]2.9 g/dLNormal1.4-4.0St[facility]'S HospitalComment on above:Performed By: #### [id number] #### [facility] [address] [place], [place] [address]Woecegk [Mass/Vol]125 mg/gUAocdsk35-135AlmhzuSt. Rita'S HospitalComment on above:Performed By: #### [id number] #### [facility] [address] [place], [place] [address]Wnkqxunmu [Moles/Vol]4.1 mmol/LNormal3.5-5.3FGrand Lake Joint Township District Memorial HospitalComment on above:Performed By: #### [id number] #### [facility] [address] [place], [place] [address]Peeuapa [Mass/Vol]7.1 g/dLNormal6.0-7.8St. [facility]'S HospitalComment on above:Performed By: #### [id number] #### [facility] [address] [place], [place] [address]Nssldi [Moles/Vol]138 mmol/XDqggfq265-876RjzvkuSt. Rita'S HospitalComment on above:Performed By: #### [id number] #### [facility] [address] [place], [place] [address]Xmio nitrogen [Mass/Vol]13 mg/dLNormal5-21St. [facility]'S HospitalComment on above:Performed By: #### [id number] #### [facility] [address] [place], [place] [address]Axuz nitrogen/Creatinine [Mass ratio]16 No CcbbtMsdzzf07-60 [facility] [facility]'S HospitalComment on above:Performed By: #### [id number] #### [facility] [address] [place], [place] [address]UgaA5dwu 77-25-5935GdZ2z (Bld) [Mass fraction]6.7 %High<=5.9 [facility] [facility]'S HospitalComment on above:Performed By: #### [id number] #### [facility] [address] [place], [place] [address]P MA/Cr Ratioon 85-85-3481Wgdhtbm DL <= 20 mg/L (U) [Mass/Vol] 3.6 mg/dLHigh0.0-1.9St[facility]'S HospitalComment on above:Performed By: #### [id number] #### [facility] [address] [place], [place] [address]Yddtwnb/Creatinine DL <= 20 mg/L (U) [Mass ratio]37.1 mg/gm Cr High.0-30.0St[facility]'S HospitalComment on above:Result Comment: 30-300 mg/g Cr indicates an increased risk for diabetic nephropathy. >300 mg/g Cr is consistent with clinical nephropathy.Performed By: #### [id number] #### [facility] [address] [place], [place] [address]T Sisvghwecx71.0 mg/dLInvalid Interpretation CodeSt. Rita'S HospitalComment on above:Performed By: #### [id number] #### [facility] [address] [place], [place] [address]rQEXtg 76-71-3974rLQA508 mL/min/1.73 g2Awcmex>=59Fisher [facility] Orthopaedic InstituteComment on above:Performed By: #### [id number] #### Josh [facility] [address] [place], [place] [address]MOZALSVYQQYIORW A1Con 37-90-1073NHN RECOMMENDATIONSEE BELOW NormalThe [facility] HospitalComment on above:Result Comment: ADA RECOMMENDED LIMIT 4.0 - 6.0 ADA THERAPEUTIC TARGET < 7.0 ACTION SUGGESTED > 7.0Performed By: #### A1C #### [facility] [address] [place] [address] Dr. Cherie DanielGlucose [Mass/Vol]97 mg/dLNoOhio State Health SystemComment on above:Performed By: #### A1C #### [facility] [address] [place] [address] Dr. Cherie DanielHbA1c (Bld) [Mass fraction]5.0 %Normal4.5-6.2[facility] For RehabilitationComment on above:Performed By: #### A1C #### [facility] [address] [place] [address] Dr. Cherie Mansfield CREAT RATIO RANDOMon 54-34-7449bSQW7.9 mg/LNormal<=30.0 [facility] For RehabilitationComment on above:Performed By: #### MCRR #### [facility] [address] [place] [address] Dr. Cherie Bentley CR RATIO28.5 mg/gNormal0.0-29.9The [facility] HospitalComment on above:Performed By: #### MCRR #### [facility] [address] [place] [address] Dr. Cherie Bentley CR RATIO RANGESEE BELOWNormMercy Health St. Rita's Medical CenterComment on above:Result Comment: NO MICROALBUMINURIA 0-29 MG/G CLINICAL MICROALBUMINURIA 30-300 MG/G MACROALBUMINURIA >300 MG/GPerformed By: #### MCRR #### [facility] [address] [place] [address] Dr. Cherie Jacobs WFFDU156.80 mg/cFOdvihe10.00-300.00The [facility] Comment on above:Performed By: #### MCRR #### [facility] [address] [place] [address] Dr. Cherie RiveraF 14(COMP METB)on 78-46-9978Vlezqrj [Mass/Vol]4.0 g/dLNormal 3.4-5.0The [facility] HospitalComment on above:Performed By: #### CMP #### [facility] [address] [place] [address] Dr. Cherie DanielAlbumin/Globulin [Mass ratio]1.0 {ratio}NormalThe [facility] HospitalComment on above:Performed By: #### CMP #### [facility] [address] [place] [address] Dr. Cherie ReedP [Catalytic activity/Vol]94 U/DQzqqbd87-920Ynv [facility] HospitalComment on above:Performed By: #### CMP #### [facility] [address] [place] [address] Dr. Cherie Austin [Catalytic activity/Vol]31 U/HPdmbgs62-34Ttv [facility] HospitalComment on above:Performed By: #### CMP #### [facility] [address] [place] [address] Dr. Cherie Dickey gap [Moles/Vol]10.9 mmol/LNormalThe [facility] Comment on above:Performed By: #### CMP #### [facility] [address] [place] [address] Dr. Cherie DanielAST [Catalytic activity/Vol]19 U/ALduqmc39-55Mxj [facility] HospitalComment on above:Performed By: #### CMP #### [facility] [address] [place] [address] Dr. Cherie DanielBilirubin [Mass/Vol]0.6 mg/dLNormal0.2-1.0The [facility] Comment on above:Performed By: #### CMP #### [facility] [address] [place] [address] Dr. Cherie DanielCalcium [Mass/Vol]9.3 mg/dLNormal8.5-10.1The [facility] Comment on above:Performed By: #### CMP #### [facility] [address] [place] [address] Dr. Cherie DanielChloride [Moles/Vol]104 mmol/NAzkdat45-646Qnb [facility] Comment on above:Performed By: #### CMP #### [facility] [address] [place] [address] Dr. Cherie DanielCO2 [Moles/Vol]27.0 mmol/XEbwuid53.0-32.0The [facility] Comment on above:Performed By: #### CMP #### [facility] [address] [place] [address] Dr. Cherie DanielCreatinine [Mass/Vol]0.95 mg/dLNormal0.70-1.30The [facility] HospitalComment on above:Performed By: #### CMP #### [facility] [address] [place] [address] Dr. Crespo ChangEGFR-AF SCOTTISH>60Normal>=60The [facility] HospitalComment on above:Performed By: #### CMP #### [facility] [address] [place] [address] Dr. Cherie AranaGFR-NON AF SCOTTISH>60Normal>=60The [facility] HospitalComment on above:Performed By: #### CMP #### [facility] [address] [place] [address] Dr. Cherie DanielGlobulin (S) [Mass/Vol]4.0 g/dLNormalThe [facility] HospitalComment on above:Performed By: #### CMP #### [facility] [address] [place] [address] Dr. Cherie DanielGlucose [Mass/Vol]103 mg/qUUgpbxz02-379Wwd [facility] Comment on above:Performed By: #### CMP #### [facility] [address] [place] [address] Dr. Cheire DanielPotassium [Moles/Vol]3.9 mmol/LNormal3.5-5.1The [facility] Comment on above:Performed By: #### CMP #### [facility] [address] [place] [address] Dr. Cherie DanielProtein [Mass/Vol]8.0 g/dLNormal6.4-8.2The [facility] Comment on above:Performed By: #### CMP #### [facility] [address] [place] [address] Dr. Cherie Mcclendondium [Moles/Vol]138 mmol/RHmdufd571-638Ngo [facility] Comment on above:Performed By: #### CMP #### [facility] [address] [place] [address] Dr. Cherie DanielUrea nitrogen [Mass/Vol]13.0 mg/dLNormal7.0-18.0[facility] Hospital For RehabilitationComment on above:Performed By: #### CMP #### [facility] [address] [place] [address] Dr. Cherie Cooper nitrogen/Creatinine [Mass ratio]13.7 mg/mgNormalThThe MetroHealth SystemComment on above:Performed By: #### CMP #### [facility] [address] [place] [address] Dr. Cherie Isaac AUTO DIFFon [id number] #0.1 103/ulNormal0.0-0.1[facility] Hospital For RehabilitationComment on above:Performed By: #### CBC #### [facility] [address] [place] [address] Dr. Cherie DanielBamarylouphils/100 WBC (Bld)0.6 %Normal0.2-2.0The [facility] Comment on above:Performed By: #### CBC #### [facility] [address] [place] [address] Dr. Cherie Cunha #0.4 103/ulNormal0.0-0.7The [facility] HospitalComment on above: Performed By: #### CBC #### [facility] [address] [place], [place] [address] Dr. Cherie Aranaosinophils/100 WBC (Bld)2.9 %Normal0.9-7.0The [facility] Comment on above:Performed By: #### CBC #### [facility] [address] [place] [address] Dr. Cherie Aranarythrocyte distribution width (RBC) [Ratio]14.1 %Ykqxkn99.0-15.0 The [facility] HospitalComment on above:Performed By: #### CBC #### [facility] [address] [place] [address] Dr. Cherie DanielHematocrit (Bld) [Volume fraction]42.8 %Gzgrid59.0-54.0The [facility] HospitalComment on above:Performed By: #### CBC #### [facility] [address] [place] [address] Dr. Cherie DanielHemoglobin (Bld) [Mass/Vol]14.7 g/sVLgsywe39.0-18.0The [facility] HospitalComment on above:Performed By: #### CBC #### [facility] [address] [place] [address] Dr. Cherie Beebe #0.05 10e3/ulCritically high0.00-0.03The [facility] Comment on above:Performed By: #### CBC #### [facility] [address] [place] [address] Dr. Cherie Beebe %0.4 %Normal0.0-0.5The [facility] HospitalComment on above: Performed By: #### CBC #### [facility] [address] [place] [address] Dr. Cherie WeiH #3.4 103/ulNormal1.2-3.8The [facility] HospitalComment on above:Performed By: #### CBC #### [facility] [address] [place] [address] Dr. Cherie Randolphmphocytes/100 WBC (Bld)25.6 %Ukntvb71.5-60.0The [facility] HospitalComment on above:Performed By: #### CBC #### [facility] [address] [place] [address] Dr. Cherie Lewis DIFF REQNONormalThe [facility] HospitalComment on above: Performed By: #### CBC #### [facility] [address] [place] [address] Dr. Cherie Eldridge (RBC) [Entitic mass]29.1 ulFizlnf78.9-34.0The [facility] HospitalComment on above:Performed By: #### CBC #### [facility] [address] [place] [address] Dr. Cherie Eldridge (RBC) [Mass/Vol]34.3 g/tQWievwl90.9-35.2The [facility] HospitalComment on above:Performed By: #### CBC #### [facility] [address] [place] [address] Dr. Cherie Eldridge (RBC) [Entitic vol]84.8 jIQbtvci16.0-94.0The [facility] HospitalComment on above:Performed By: #### CBC #### [facility] [address] [place] [address] Dr. Cherie Goyal #0.8 103/ulNormal0.3-0.8The [facility] HospitalComment on above:Performed By: #### CBC #### [facility] [address] [place] [address] Dr. Cherie Bairesocytes/100 WBC (Bld)5.7 %Normal1.7-12.0[facility] Comment on above:Performed By: #### CBC #### [facility] [address] [place] [address] Dr. Cherie Celaya #8.5 103/ulCritically high1.4-6.5The [facility] Comment on above:Performed By: #### CBC #### [facility] [address] [place] [address] Dr. Cherie Barrigautrophils/100 WBC (Bld)64.8 %Ebugvi38.0-75.0The [facility] HospitalComment on above:Performed By: #### CBC #### [facility] [address] [address] [address] Cherie DanielPlatelet mean volume (Bld) [Entitic vol]10.4 fLNormal9.5-13.5The [facility] HospitalComvon [facility] on above:Performed By: #### CBC #### [facility] [address] [address] [address] Cherie DanielPLT246 103/smDsqrve722-343Fea [facility] on above: Performed By: #### CBC #### [facility] [address] [address] [address] Cherie DanielRBC5.05 106/ulNormal4.70-6.10The [facility] on above:Performed By: #### CBC #### [facility] [address] [place] [address] Dr. Cherie DanielWBC13.1 103/ulCritically high4.0-11.0The [facility] on above:Performed By: #### CBC #### [facility] [address] [place] [address] Dr. Cherie DanielGLYCOHEMOGLOBIN A1Con 63-31-0113OYD RECOMMENDATIONSEE BELOWNormal [facility] on above:Result Comment: ADA RECOMMENDED LIMIT 4.0 - 6.0 ADA THERAPEUTIC TARGET < 7.0 ACTION SUGGESTED > 7.0Performed By: #### A1C #### [facility] [address] [place] [address] Dr. Cherie DanielGlucose [Mass/Vol]166 mg/dLNormalThe [facility] on above:Performed By: #### A1C #### [facility] [address] [address] [address] Cherie DanielHbA1c (Bld) [Mass fraction]7.4 %Critically high4.5-6.2The [facility] on above:Performed By: #### A1C #### [facility] [address] [place] [address] Dr. Cherie DanielLIPID PROFILEon 31-11-2621CXST-HDL RATIO NORMSLancaster Municipal HospitalComment on above:Result Comment: 3.3 - 4.4 LOW RISK 4.4 - 7.1 AVERAGE RISK 7.1 - 11.0 MODERATE RISK >11.0 HIGH RISKPerformed By: #### LIPID, CMP #### [facility] [address] [address] [address] Cherie DanielCholesterol [Mass/Vol]179 mg/dLNormal<=200[facility] Comment on above:Performed By: #### LIPID, CMP #### [facility] [address] [address] [address] Cherie DanielCholesterol in HDL [Mass/Vol]45 mg/xIJdbmna54-25KhoChildren'S Hospital For RehabilitationComment on above:Performed By: #### LIPID, CMP #### [facility] [address] [place] [address] Dr. Cherie DanielCholesterol in LDL [Mass/Vol]118.2 mg/dLEast Liverpool City HospitalComment on above:Performed By: #### LIPID, CMP #### [facility] [address] [place] [address] Dr. Cherie DanielCholestersheryl.total/Cholesterol in HDL [Mass ratio]4.0 {ratio} NormalChildren'S Hospital For RehabilitationComment on above:Performed By: #### LIPID, CMP #### [facility] [address] [place] [address] Dr. Cherie Cain NORMAL> or = 60 mg/dl - LOW CARDIOVASCULAR RISK <40 mg/dl - HIGH CARDIOVASCULAR RISKEast [facility] HospitalComvon [facility] on above:Performed By: #### LIPID, CMP #### [facility] [address] [place] [address] Dr. Cherie DanielLDL CALC NORMALSESt. Francis HospitalComvon [facility] on above:Result Comment: <100 mg/dl OPTIMAL 100 - 129 mg/dl NEAR OR ABOVE OPTIMAL 130 - 159 mg/dl BORDERLINE HIGH 160 - 189 mg/dl HIGH >190 mg/dl VERY HIGH Performed By: #### LIPID, CMP #### [facility] [address] [address] [address] Cherie DanielTriglyceride [Mass/Vol]79 mg/dLNormal<=150The [facility] Comment on above:Performed By: #### LIPID, CMP #### [facility] [address] [address] [address] Cherie DanielVLDL CALC15.8 mg/dLNormalThe [facility] HospitalComment on above: Performed By: #### LIPID, CMP #### [facility] [address] [address] [address] Cherie DanielPROF 14(COMP METB)on 19-31-1392Cjumddt [Mass/Vol]3.7 g/dLNormal 3.4-5.0The [facility] HospitalComment on above:Performed By: #### LIPID, CMP #### [facility] [address] [place] [address] Dr. Cherie DanielAlbumin/Globulin [Mass ratio]0.9 {ratio}NormalThe [facility] HospitalComment on above:Performed By: #### LIPID, CMP #### [facility] [address] [place] [address] Dr. Cherie Bejarano [Catalytic activity/Vol]99 U/OUjyhog49-414Ciu [facility] HospitalComment on above:Performed By: #### LIPID, CMP #### [facility] [address] [place] [address] Dr. Cherie Austin [Catalytic activity/Vol]33 U/ENezpnn53-72Izp [facility] HospitalComment on above:Performed By: #### LIPID, CMP #### [facility] [address] [place] [address] Dr. Cherie Dickey gap [Moles/Vol]11.2 mmol/LNormalThe [facility] Comment on above:Performed By: #### LIPID, CMP #### [facility] [address] [place] [address] Dr. Cherie Angel [Catalytic activity/Vol]19 U/RPqgvwh49-85Act [facility] HospitalComment on above:Performed By: #### LIPID, CMP #### [facility] [address] [address] [address] Cherie DanielBilirubin [Mass/Vol]0.5 mg/dLNormal0.2-1.0The [facility] Comment on above:Performed By: #### LIPID, CMP #### [facility] [address] [address] [address] Cherie DanielCalcium [Mass/Vol]8.8 mg/dLNormal8.5-10.1The [facility] Comment on above:Performed By: #### LIPID, CMP #### [facility] [address] [address] [address] Cherie DanielChloride [Moles/Vol]101 mmol/HGdpzli95-960Ptj [facility] Comment on above:Performed By: #### LIPID, CMP #### [facility] [address] [place] [address] Dr. Cherie DanielCO2 [Moles/Vol]29.8 mmol/SOwrzev47.0-32.0The [facility] Comment on above:Performed By: #### LIPID, CMP #### [facility] [address] [address] [address] Cherie DanielCreatinine [Mass/Vol]0.91 mg/dLNormal0.70-1.30The [facility] HospitalComment on above:Performed By: #### LIPID, CMP #### [facility] [address] [place] [address] Dr. Cherie AranaGFR-AF SCOTTISH>60Normal>=60The [facility] HospitalComment on above:Performed By: #### LIPID, CMP #### [facility] [address] [place] [address] Dr. Cherie AranaGFR-NON AF SCOTTISH>60Normal>=60The [facility] HospitalComment on above:Performed By: #### LIPID, CMP #### [facility] [address] [place] [address] Dr. Cherie DanielGlobulin (S) [Mass/Vol]4.0 g/dLNormalThe [facility] HospitalComment on above:Performed By: #### LIPID, CMP #### [facility] [address] [address] [address] Cherie DanielGlucose [Mass/Vol]163 mg/dLCritically zbdi53-020Axr [facility] HospitalComment on above:Performed By: #### LIPID, CMP #### [facility] [address] [address] [address] Cherie DanielPotassium [Moles/Vol]4.0 mmol/LNormal3.5-5.1The [facility] Comment on above:Performed By: #### LIPID, CMP #### [facility] [address] [address] [address] Cherie DanielProtein [Mass/Vol]7.7 g/dLNormal6.4-8.2The [facility] Comment on above:Performed By: #### LIPID, CMP #### [facility] [address] [place] [address] Dr. Cherie DanielSodium [Moles/Vol]138 mmol/DEtubkk084-986Ykt [facility] Comment on above:Performed By: #### LIPID, CMP #### [facility] [address] [address] [address] Cherie DanielUrea nitrogen [Mass/Vol]10.0 mg/dLNormal7.0-18.0The [facility] HospitalComment on above:Performed By: #### LIPID, CMP #### [facility] [address] [address] [address] Cherie DanielUrea nitrogen/Creatinine [Mass ratio]11.0 mg/mgNoOhio State Health SystemComment on above:Performed By: #### LIPID, CMP #### [facility] [address] [place] [address] Dr. Cherie DanielVITAMIN D 25 OHon 53-99-3052ZEQ D 25-OH10.9 ng/mLNormalChildren'S Hospital For RehabilitationComment on above:Performed By: #### VITAD #### [facility] [address] [place] [address] Dr. Cherie ChavarriaT D RANGESSEE BELOWEast Liverpool City HospitalComment on above: Result Comment: <20 ng/mL Vit D deficient 20 - <30 ng/mL Vit D insufficient 30 - 100 ng/mL Vit D sufficient >100 ng/mL Potential ToxicityPerformed By: #### VITAD #### [facility] [address] [place] [address] Dr. Cherie Daniel Vital Signs Date TimeVital SignValuePerforming RinclchfiCzdklnrz57-51-7393 10:41-0400Body ayetle919.88 cmGeorge Stu Adams MD Work Phone: [phone]08-27-2025 10:41-0400 Body mass index (BMI) [Ratio]40.5 kg/i0Uemoyf Stu Adams MD Work Phone: [phone]08-27-2025 10:41-0400 Body tufsov680.62 kgGeorge Stu Adams MD Work Phone: [phone])[address]08-27-2025 10:41-0400 Diastolic blood kacuqydn17 mm[Hg]Santiago Adams MD Work Phone: [phone]08-27-2025 10:41-0400 Heart rate79 /minGeorge Stu Adams MD Work Phone: [phone] [place], [place] 3446508-27-2025 10:41-0400 Respiratory rate18 /minGeorge Stu Adams MD Work Phone: [phone] [place], [place] 3446508-27-2025 10:41-0400 SaO2% (BldA) [Mass fraction]97 %Santiago Adams MD Work Phone: [phone]08-27-2025 10:41-0400 Systolic blood fqdyhlxf814 mm[Hg]Santiago Adams MD Work Phone: [phone]06-23-2025 11:26-0400 Body ojdslu288.88 cmGeorge Stu Adams MD Work Phone: [phone]06-23-2025 11:26-0400 Body mass index (BMI) [Ratio]42.5 kg/l5Skixwk Stu Adams MD Work Phone: [phone]06-23-2025 11:26-0400 Body jcyerz456.42 kgGeorge Stu Adams MD Work Phone: [phone]06-23-2025 11:26-0400 Diastolic blood xbxrawai08 mm[Hg]Santiago Adams MD Work Phone: [phone]06-23-2025 11:26-0400 Heart rate85 /minGeorge Stu Adams MD Work Phone: [phone]06-23-2025 11:26-0400 Respiratory rate16 /minGeorge Stu Adams MD Work Phone: [phone]06-23-2025 11:26-0400 SaO2% (BldA) [Mass fraction]96 %Santiago Adams MD Work Phone: [phone]06-23-2025 11:26-0400 Systolic blood mm[Hg]Santiago Adams MD Work Phone: [phone]02-28-2023 10:00-0500 Body ueyeia538.88 cmSyanci Byers Other [employer] Other 02-28-2023 10:00-0500Body mass index (BMI) [Ratio]39.6 kg/o5CoyqxlrobDanica Byers Other [employer] Other 02-28-2023 10:00-0500Body hxofkvaslsk83.1 [degF] Danica [facility] Other 02-28-2023 10:00-0500Body jhspma206.45 kgSttal Modesta Other [employer] Other 02-28-2023 10:00-0500Diastolic blood rowaqqmd33 mm[Hg] Danica Modesta Other [employer] Other 02-28-2023 10:00-0500Respiratory rate18 /minSaichajoaquinjoanne Modesta Other [employer] Other 02-28-2023 10:00-8134EhU4% (BldA) [Mass fraction]97 % Danica Modesta Other [employer] Other 02-28-2023 10:00-0500Systolic blood mm[Hg] Danica Modesta Other [employer] Other 12-27-2022 11:00-0500Body ndnuhf877.88 cmSaichajoaquinjoanne Modesta Other [employer] Other 12-27-2022 11:00-0500Body mass index (BMI) [Ratio] 41.63 kg/o6Pvjqgxuqrkorin Byers Other [employer] Other 12-27-2022 11:00-0500Body wpnorgxlteb65.4 [degF] Danica Modesta Other [employer] Other 12-27-2022 11:00-0500Body paygds745.26 kgStmandojoaquinjoanne Modesta Other [employer] Other 12-27-2022 11:00-0500Diastolic blood neoxqods83 mm[Hg] Danica Rodault Other [employer] Other 12-27-2022 11:00-0500Respiratory rate18 /minSyanci Modesta Other [employer] Other 12-27-2022 11:00-7676AbB5% (BldA) [Mass fraction]96 % Danica Modesta Other [employer] Other 12-27-2022 11:00-0500Systolic blood doglfwji865 mm[Hg] Danica Modesta Other [employer] Other 11-07-2022 11:00-0500Body .88 cmSaichajoaquinjoanne Modesta Other [employer] Other 11-07-2022 11:00-0500Body mass index (BMI) [Ratio] 44.21 kg/z4Osjthkcyy Modesta Other [employer] Other 11-07-2022 11:00-0500Body vbjrshajwhl00.3 [degF] Danica Modesta Other [employer] Other 11-07-2022 11:00-0500Body ppubvh522.87 kgSttal Modesta Other [employer] Other 11-07-2022 11:00-0500Diastolic blood gdbxedna170 mm[Hg]Danica Modesta Other [employer] Other 11-07-2022 11:00-0500Respiratory rate18 /minSaichakorin Byers Other [employer] Other 11-07-2022 11:00-7364RwJ2% (BldA) [Mass fraction]97 % Danica Modesta Other [employer] Other 11-07-2022 11:00-0500Systolic blood kzbgfziy163 mm[Hg] Danica Modesta Other [employer] Other 10-18-2022 11:30-0400Body aisfqx058.88 cmSyanci Modesta Other [employer] Other 10-18-2022 11:30-0400Body mass index (BMI) [Ratio] 44.34 kg/w6Pydaokitg Modesta Other [employer] Other 10-18-2022 11:30-0400Body teoeliomyoy46.3 [degF] Danica Modesta Other [employer] Other 10-18-2022 11:30-0400Body ylnibd374.33 kgSttal Modesta Other [employer] Other 10-18-2022 11:30-0400Diastolic blood pleaoofo660 mm[Hg]Danica Modesta Other [employer] Other 10-18-2022 11:30-0400Respiratory rate20 /minSaichakorin Byers Other [employer] Other 10-18-2022 11:30-1077RkQ5% (BldA) [Mass fraction]96 % Danica Moedsta Other [facility] Other 10-18-2022 11:30-0400Systolic blood adegdqhi410 mm[Hg] Danica Byers Other [facility] Other Encounters Encounter DateEncounter TypeCare ProviderFacilityStart: 06-14-2025 End: 97-28-4315kssxdwgkmwXQQSt. [facility] Work Phone: Start: 06-14-2025 End: 28-94-0752Stirova encounter procedureSantiago Adams MD-[facility] Work Phone: Start: 05-19-2025 End: 27-56-2363Ojsltby encounter procedureMary Segundo OIL RECOVERY OPERATOR-C-[facility] Work Phone: Start: 05-19-2025 End: 63-92-4297ypwbvosylmXCRMagruder Memorial Hospital Work Phone: Start: 04-10-2025 End: 69-94-9530Uwmynyv encounter procedureSantiago Adams MD-[facility] Work Phone: Start: 04-10-2025 End: 48-40-6668fwxxkdipatHganhs Augustine KoromiaFacility:[facility] Hospitaltart: 04-10-2025 End: 39-09-4439pnogdeeaouKysnpf Augustine KoromiaFacility:[facility] Hospitaltart: 04-10-2025 End: 13-48-4563Wovzbsy encounter procedureSantiago Adams MD-[facility] Work Phone: Start: 07-27-2024 End: 58-65-7468mjzzllpsiiZXCNSXOPQ BREAULTFacility:[facility]ITALtart: 12-16-2022 End: 23-29-8331rojxsatyjnVcbuiekdg Breault Other [facility] Other Start: 02-89-1736Dripht outpatient visit 15 minutes Danica [facility] ClydeStart: 12-11-2022 End: 61-73-2545iigwcfnysgFNEAWFOOD BREAULTFacility:W8Apcnk: 11-24-2022 End: 66-41-0659evpqayctvyPrnlsnojz Breault Other [employer] Other Start: 82-46-4058Kvvewmbmy encounterSyanci Byers [facility] Care ClydeStart: 10-14-2022 End: 08-87-5055vrajjdwcqsCmqcimhhk Modesta Other [employer] Other Start: 88-65-8161Qlchwr outpatient visit 25 minutes Danica [facility] ClydeStart: 08-25-2022 End: 75-61-7796ryaqamsuzbTphtgzqql Breault Other [employer] Other Start: 57-63-6637Ogyull outpatient visit 25 minutes Danica [facility] ClydeStart: 08-11-2022 End: 87-01-1905uvyxrmvszdEeenzhiqn Modesta Other [employer] Other Start: 51-97-9545Odvtqvfps by computer [facility] ClydeStart: 88-94-9405Xvyriwezf for general adult medical examination without abnormal findingsSTTAL BYERSUniversity Hospitals Elyria Medical Centertart: 08-05-2022 End: 59-01-9117Edyjafuyu for general adult medical examination without abnormal findingsSttal [facility] ClydeStart: 15-26-3888Ywnxkvs preventive medicine new patient 40-64yrsSaichakorin Wodo [facility] ClydeStart: 08-05-2022 End: 42-27-6765ucvpszriqrLAEAUSMAB BREAULTNorth [employer] Other Procedures DateProcedureProcedure DetailPerforming ClinicianStart: 87-64-2620P-ray of both anklesGeorge Stu Adams MD Work Phone: Start: 90-30-9947C-ray of both feetGeorge Stu Adams MD Work Phone: Start: 76-65-7164C-ray of right knee, two viewsGesandra Adams MD Work Phone: Plan of Treatment DateCare ActivityDetailAuthorCardiovascular stress testingProtestant HospitalCefuroxime free [Mass/volume] in Serum or PlasmaProtestant HospitalUS Heart TransthoracicProtestant HospitalUS Unspecified body regionAdventHealth Daytona Beach Immunizations Immunization DateImmunizationNotesCare AxtyhazzGyrcrpoa96-50-2778dgcsjpe toxoid, reduced diphtheria toxoid, and acellular pertussis vaccine, adsorbedGeorge Stu Adams MD Work Phone: [facility]04-19-2024COVID-19 (PFIZER) 12Y and olderGeorge Stu Adams MD Work Phone: [facility]11-26-2022COVID-19 mRNA Bivalent Booster (Pfizer)Santiago Adams MD Work Phone: [facility]11-26-2022Influenza, injectable, Madin Wet[place]ka Canine Kidney, preservative free, quadrivalentGeorge Stu Adams MD Work Phone: [facility]12-03-2021COVID-19 mRNA, Comirnaty (Pfizer)Santiago Adams MD Work Phone: [facility]12-03-2021Influenza, injectable, Madin Yessica Canine Kidney, preservative free, quadrivalentGeorge Stu Adams MD Work Phone: [facility]04-13-2021COVID-19 mRNA, Comirnaty (Pfizer)Santiago Adams MD Work Phone: [facility]03-23-2021COVID-19 mRNA, Comirnaty (Pfizer)Santiago Adams MD Work Phone: [facility] Payers DatePayer CategoryPayerPolicy [id number] Health [id number] Social History DateTypeDetailFacilitySex Assigned At [facility] Other Start: [id number] smoking status NHISEx-smoker (finding)[facility]art: [id number] Assigned At [facility] Evaluation note 04-10-2025 Note Date & NdwcFtirCzpypvux23-60-2421 Evaluation note* Diagnosis Onset Date Resolution Status Admit Date Primary hypertension acuteJun2024 11:00amFamily history of coronary artery diseasenoneactive April 10, 2025 11:00am [facility] Work Phone: Evaluation note 04-10-2025 Note Date & [id number] Evaluation note* Diagnosis Onset Date Resolution Status Admit Date Primary hypertension acuteJune 2024 11:00amFamily history of coronary artery diseasenoneactive April 10, 2025 11:00amPrimary hypertensionacuteAugust 2024 10:31amFamily history of coronary artery diseasenoneactiveAugust 2024 10:31am [facility] Work Phone: Evaluation note 12-16-2022 Note Date & [id number] Evaluation note* Encounter Date Diagnosis Assessment Notes Treatment Notes Treatment Clinical Notes Nov, Primary hypertension (ICD-10 - I 10) Increased dose as we discussed and will follow up in new office in 6 months Nov,Type 2 diabetes mellitus without complication, without long-term current use of insulin (ICD-10 - E11.9)Continue to control with diet as it is working [employer] Other Evaluation note 11-24-2022 Note Date & WnzeTebhJuwkceci09-23-0598 Evaluation note* Encounter Date Diagnosis Assessment Notes Treatment Notes Treatment Clinical Notes Nov, Primary hypertension (ICD-10 - I 10) [employer] Other Evaluation note 10-14-2022 Note Date & UmpnVwmtTzvanlbg78-06-0862 Evaluation note* Encounter Date Diagnosis Assessment Notes Treatment Notes Treatment Clinical Notes Sep, Primary hypertension (ICD-10 - I 10) Continue current treatment plans. blood work will be check in 6 more weeks Sep,Type 2 diabetes mellitus without complication, without long-term current use of insulin (ICD-10 - E11.9)Continue current treatment plans. Currently had 19 pound weight loss. [employer] Other Evaluation note 08-25-2022 Note Date & YkygSvcuNycyzpsy83-28-2491 Evaluation note* Encounter Date Diagnosis Assessment Notes Treatment Notes Treatment Clinical Notes Aug, Follow-up exam (ICD-10 - Z09) Discussed all test results in office today and what further steps are needed. Patient states understanding. Aug,rimary hypertension (ICD-10 - I10)Today we discussed lab results from previous visit. It is important for us to make sure we protect your kidneys since vision, kidneys and blood circulation are all effected by high blood pressure. Itmay take us a couple of visits to [...] healthcare decisions, About hypertension material was printed Aug,Type 2 diabetes mellitus without complication, without long-term current use of insulin (ICD-10 - E11.9)Today during the appointment we discussed all of [...] drinks. Will recheck A1C in 8-12 weeks [employer] Other Evaluation note 08-05-2022 Note Date & [id number] Evaluation note* Encounter Date Diagnosis Assessment Notes Treatment Notes Treatment Clinical Notes Jul, Encounter for wellness examinati on in adult (ICD-10 - Z00.00) Today during your appointment we discussed your health history and family history of chronic healthproblems. We also discussed screenings that should be done to rule out chronic health problems. These screenings can help prevent many health problems from becoming major as early intervention is thebest treatment for all conditions. We will be checking your cholesterol, kidney function, as well as blood sugar. Based on these findings, we will come up with a plan together of when the best time for your next screening should be. Jul,Elevated blood pressure reading (ICD-10 - R03.0)Patient is taking blood pressure at home weekly to see if he has white coat syndrome - will bring them to next appointment [facility] [employer] Other Evaluation note Note Date & TypeNoteFacilityEvaluation noteNo InformationNort [employer] Other History general Narrative - Reported Note Date & TypeNoteFacilityHistory general Narrative - Reported* Type Description Date Medical History diabetes Medical Historyhypertension [employer] Other Reason for referral (narrative) Note Date & TypeNoteFacilityReason for referral (narrative)No reason for referral information availableK[facility]tering Health [facility] Work Phone: Summary Purpose Family History Relationship Condition Age at Onset Recorded Date/T mer father Heart disease Unknown Diabetes mellitusUnknownFamily history of mental disorderUnknownDeceasedUnknown motherFamily history of mental disorderUnknown Advance Directives Advance Directive Response Recorded Date/ Time Advance Directives UNK April 10 10:58am Chief Complaint and Reason for Visit Chief Complaint Admit Date Primary Hypertension April 10, 2025 11: 00am i10 April 10, 2025 11:0 9am I11.9 April 10, 2025 12:2 7pm m79.89 m25.561 m79.671 May 19, 2025 11:34am Reason for Visit Admit Date Primary hypertension April 10, 2025 11: 00am Family history of coronary artery diseas e April 10, 2025 11:00am Chief Complaint Admit Date Primary Hypertension April 10, 2025 11: 00am i10 April 10, 2025 11:0 9am I11.9 April 10, 2025 12:2 7pm m79.89 m25.561 m79.671 May 19, 2025 11:34am 2 month f/u June 14, 2025 10 :31am Reason for Visit Admit Date Primary hypertension April 10, 2025 11: 00am Family history of coronary artery diseas e April 10, 2025 11:00am Primary hypertension June 14, 2025 1 0:31am Family history of coronary artery diseas e June 14, 2025 10:31am Additional Source Comments REASON FOR VISIT (unrecogniz ed section and content) ESTABLISH, Mateo Establish P [id number] LabsF/U labwork BP,, Mateo Lab/Test Follow upFOLLOW UP HTN, [place] HypertensionNo InformationF/U, [place]o diabetes (unrecognized sect ion and content) No Status Records FoundNo Status Records FoundNo Status Records FoundNo Status Records FoundNo Status Records FoundNo Status Records FoundNo Status Records FoundNo Status Records Found INFORMATION SOURCE (unrecogn ized section and content) DATE CREATED AUTHOR 12/16/2022 [facility] DATE CREATED AUTHOR AUTHOR'S ORGANIZ ATION 07/30/2024 [facility] DATE CREATED AUTHOR AUTHOR'S ORGANIZ ATION 07/31/2024 [facility] DATE CREATED AUTHOR AUTHOR'S ORGANIZ ATION 08/01/2024 [facility] DATE CREATED AUTHOR AUTHOR'S ORGANIZ ATION 05/24/2025 [facility] Care Teams (unrecognized sec tion and content) Team Status: Active Member Role Status Dates ESMER Alcantar Primary Care Provider Active Team Status: Inactive Member Role Status Dates Santiago Adams MD Attending Provider Activ e Start: April 10, 2025 End: April 10, 2025NON STAFFPrimary Care ProviderActiveStart: April 10, 2025 End: April 10, 2025 Team Status: Inactive Member Role Status Dates NON STAFF Primary Care Provider Active Start: April 10, 2025 End: April 10, 2025GeMiguel Brown ProviderActiveStart: April 10, 2025 End: April 10, 2025 Team Status: Inactive Member Role Status Dates PHYSICIAN NO FAMILY Primary Care Provider Active Start: April 10, 2025 End: April 10, 2025GeMiguel Brown ProviderActiveStart: April 10, 2025 End: April 10, 2025 Team Status: Inactive Member Role Status Dates ESMER Alcantar Primary Care Provider Active Start: May 19, 2025 End: May 19, 2025ARUN AlcantarCAtemma ProviderActiveStart: May 19, 2025 End: May 19, 2025 Team Status: Inactive Member Role Status Dates Santiago Adams MD Attending Provider Activ e Start: June 14, 2025 End: June 14, 2025ARUN AlcantarCPrjohn [facility]. [facility] Care ProviderActiveStart: June 14, 2025 End: June 14, 2025 Goals (unrecognized section and content) Goals may be documented in a n alternate section FOR RECORDS PERTAINING TO PATIENTS WHO ARE [...] BE BASED ON THE PRIMARY CLINICAL RECORDS. [employer] [facility]. provides no warranty or guarantee of the accuracy or completeness of information in this document.
[2025-09-11 12:34] LABS: Hematocrit 41.9 % (42.0-54.0); Hemoglobin 14.3 g/dL (14.0-18.0); Immature Granulocytes Abs Auto 0.03 10^3/uL (0.00-0.03); Immature Granulocytes Pct Auto 0.3 % (0.0-0.5); Lymphocytes Absolute Auto 2.5 10^3/uL (1.2-3.8); Mean Corpuscular HGB Conc 34.1 g/dL (29.9-35.2); Mean Corpuscular Hemoglobin 28.7 pg (25.9-34.0); Mean Corpuscular Volume 84.1 fL (80.0-94.0); Platelet Count 271 10^3/uL (150-450); Red Blood Count 4.98 10^6/uL (4.70-6.10); White Blood Count 11.5 10^3/uL (4.0-11.0)
== END 2025-09-11 11:52 | disposition home or self-care (01) ==
LOC: LAB 11:52
PROVIDERS: PCP Nurse Practitioner Family; Visit Provider Podiatrist Foot & Ankle Surgery
DX: M35.9 Systemic involvement of connective tissue, unspecified (principal)
CPT/HCPCS: 36415; 81374; 85025; 85652; 86038; 86140; 86431